=== PATIENT | female | born 1990 ===

== ENCOUNTER → 2023-01-08 09:56 | Outpatient (BNVA) | payer OTHER, SELFPAY | PROVIDERS: Visit Provider Physician Assistant ==

== ENCOUNTER 2023-01-15 10:51 | Outpatient (AMB) | payer OTHER, SELFPAY ==
--- NOTE | 2023-01-15 11:01 | A.OFFVIS_ITS ---
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 She is at the heaviest of her adult life at 217.6 lb/BMI 35.1. She notes that she has been told she has high cholesterol but also notes difficulty in seeing her PCP and is currently looking for a new primary. She also notes that she has been told to take an iron supplement due to anemia which is presumed to be related to heavy, irregular menses, but the patient has not seen a betting agency manager today. She notes a daytime sleepiness with an [place] Sleepiness Scale of 11. The patient is scheduled evaluation because of a lifelong struggle with obesity and is interested in weight loss options. Patient notes weight loss occurred as an adolescent due to braces and recently was tried on Topamax by her PCP. She is also previously tried herbal Life. She notes a family history of obesity and extended history of type 2 diabetes in both maternal and paternal grandparents. GERD 0 ESS 11 ALEC 11 QOL 85 SF-36 questionnaire is completed in reviewed She reports a past history of a tubal ligation in 2011 and a laparoscopic cholecystectomy Previous wt loss efforts: Topamax, HerbLife Wakes: 6-7am re: getting kids to school, goes back to bed until 10am; Bedtime: [id number] Brkfst: Juice or skips Lunch Chips & soda (zero corina soda) Dinner: Fast food; she doesn't cook Drinks: Juice, zero corina soda, regular soda snacks: Cheezits or chips Exercise: none ETOH/marijuana/Nicotine/drugs: none Work: unemployed [facility] Medical History Hypercholesterolemia Review of Systems Const All systems reviewed & are unremarkable except as noted in HPI and below Reports as per HPI Physical Exam Vital Signs: Last Vital Signs Temp 98.6 F 01/15/23 11:06 Pulse 86 01/15/23 11:06 BP 123/76 01/15/23 11:06 Pulse Ox 97 01/15/23 11:06 Oxygen Delivery Method Room Air 01/15/23 11:06 BMI result Body Mass Index 35.1 On exam she is anicteric and nontoxic She is in no acute respiratory distress Heart is regular, normal S1-S2 with no rubs or murmurs Lungs are clear and equal anteriorly Abdomen is obese and soft with no tenderness Assessment & Plan Assessment & Plan (1) BMI 35.0-35.9,adult: Code(s): Z68.35 - Body mass index [BMI] 35.0-35.9, adult (2) Hypercholesterolemia: Code(s): E78.00 - Pure hypercholesterolemia, unspecified (3) Daytime sleepiness: Code(s): R40.0 - Somnolence (4) Non-restorative sleep: Code(s): G47.8 - Other sleep disorders (5) Anemia: Code(s): D64.9 - Anemia, unspecified (6) Irregular menses: Code(s): N92.6 - Irregular menstruation, unspecified Plan Using a teaching dietary director, I reviewed normal anatomy and physiology and stress the importance of healthy diet and increased activity/exercise to optimize weight loss. We reviewed the options of Orbera balloon, gastric bypass and sleeve gastrectomy. I also gave her handouts regarding high lean protein/high vegetable/fiber diet. The patient noted that she is not currently cooking and would like to schedule a follow-up to review and meal plan with a goal of entering the surgical weight loss program. I have ordered a sleep study given her daytime sleepiness and ESS; I have also ordered a betting agency manager referral given the fact the patient states she was directed to find a betting agency manager. Fasting labs, Behavioral Health, dietitian referral or also ordered. Will see the patient back for 45 minute appointment in 2 weeks. She is encouraged to write down any questions regarding the handouts. She is also instructed to try some of the protein products/supplements. Orders: Orders Vitamin B12 and Folate Today E78.00 - Pure hypercholesterolemia, unspecified, G47.8 - Other sleep disorders, R40.0 - Somnolence, Z68.35 - Body mass index [BMI] 35.0-35.9, adult Comprehensive Met. Panel Today E78.00 - Pure hypercholesterolemia, unspecified, G47.8 - Other sleep disorders, R40.0 - Somnolence, Z68.35 - Body mass index [BMI] 35.0-35.9, adult C Reactive Protein Today E78.00 - Pure hypercholesterolemia, unspecified, G47.8 - Other sleep disorders, R40.0 - Somnolence, Z68.35 - Body mass index [BMI] 35.0-35.9, adult Ferritin Today E78.00 - Pure hypercholesterolemia, unspecified, G47.8 - Other sleep disorders, R40.0 - Somnolence, Z68.35 - Body mass index [BMI] 35.0-35.9, adult Hemoglobin A1c Today E78.00 - Pure hypercholesterolemia, unspecified, G47.8 - Other sleep disorders, R40.0 - Somnolence, Z68.35 - Body mass index [BMI] 35.0- 35.9, adult Insulin Today E78.00 - Pure hypercholesterolemia, unspecified, G47.8 - Other sleep disorders, R40.0 - Somnolence, Z68.35 - Body mass index [BMI] 35.0-35.9, adult IRON PROFILE Today E78.00 - Pure hypercholesterolemia, unspecified, G47.8 - Other sleep disorders, R40.0 - Somnolence, Z68.35 - Body mass index [BMI] 35.0- 35.9, adult Lipid Panel Today E78.00 - Pure hypercholesterolemia, unspecified, G47.8 - Other sleep disorders, R40.0 - Somnolence, Z68.35 - Body mass index [BMI] 35.0-35.9, adult PTHI Today E78.00 - Pure hypercholesterolemia, unspecified, G47.8 - Other sleep disorders, R40.0 - Somnolence, Z68.35 - Body mass index [BMI] 35.0-35.9, adult TSH reflex Free T4 Today E78.00 - Pure hypercholesterolemia, unspecified, G47.8 - Other sleep disorders, R40.0 - Somnolence, Z68.35 - Body mass index [BMI] 35.0-35.9, adult Vitamin A Today E78.00 - Pure hypercholesterolemia, unspecified, G47.8 - Other sleep disorders, R40.0 - Somnolence, Z68.35 - Body mass index [BMI] 35.0-35.9, adult Vitamin B1 Today E78.00 - Pure hypercholesterolemia, unspecified, G47.8 - Other sleep disorders, R40.0 - Somnolence, Z68.35 - Body mass index [BMI] 35.0-35.9, adult Vitamin D 25-OH Total Today E78.00 - Pure hypercholesterolemia, unspecified, G47.8 - Other sleep disorders, R40.0 - Somnolence, Z68.35 - Body mass index [BMI] 35.0-35.9, adult Zinc Today E78.00 - Pure hypercholesterolemia, unspecified, G47.8 - Other sleep disorders, R40.0 - Somnolence, Z68.35 - Body mass index [BMI] 35.0-35.9, adult ECG 12 lead EKG Today E78.00 - Pure hypercholesterolemia, unspecified, G47.8 - Other sleep disorders, R40.0 - Somnolence, Z68.35 - Body mass index [BMI] 35.0- 35.9, adult FL upper GI w air Today E78.00 - Pure hypercholesterolemia, unspecified, G47.8 - Other sleep disorders, R40.0 - Somnolence, Z68.35 - Body mass index [BMI] 35.0- 35.9, adult Complete Blood Count Auto Diff Today E78.00 - Pure hypercholesterolemia, unspecified, G47.8 - Other sleep disorders, R40.0 - Somnolence, Z68.35 - Body mass index [BMI] 35.0-35.9, adult RT home sleep study Today E78.00 - Pure hypercholesterolemia, unspecified, G47.8 - Other sleep disorders, R40.0 - Somnolence, Z68.35 - Body mass index [BMI] 35.0-35.9, adult H Pylori Breath Test Today E78.00 - Pure hypercholesterolemia, unspecified, G47.8 - Other sleep disorders, R40.0 - Somnolence, Z68.35 - Body mass index [BMI] 35.0-35.9, adult US abdomen comp w elastography Today E78.00 - Pure hypercholesterolemia, unspecified, G47.8 - Other sleep disorders, R40.0 - Somnolence, Z68.35 - Body mass index [BMI] 35.0-35.9, adult XR chest 2V Today E78.00 - Pure hypercholesterolemia, unspecified, G47.8 - Other sleep disorders, R40.0 - Somnolence, Z68.35 - Body mass index [BMI] 35.0-35.9, adult Referrals Behavioral Health Referral E78.00 - Pure hypercholesterolemia, unspecified, G47.8 - Other sleep disorders, R40.0 - Somnolence, Z68.35 - Body mass index [BMI] 35.0-35.9, adult Nutrition/Dietitian Referral E78.00 - Pure hypercholesterolemia, unspecified, G47.8 - Other sleep disorders, R40.0 - Somnolence, Z68.35 - Body mass index [BMI] 35.0-35.9, adult MANUFACTURING MAINTENANCE MECHANIC Referral D64.9 - Anemia, unspecified, E78.00 - Pure hypercholesterolemia, unspecified, G47.8 - Other sleep disorders, N92.6 - Irregular menstruation, unspecified, R40.0 - Somnolence, Z68.35 - Body mass index [BMI] 35.0-35.9, adult Coding Level of Care Code New Pt Level 4 (79570) Diagnoses BMI 35.0-35.9,adult Z68.35 Hypercholesterolemia E78.00 Daytime sleepiness R40.0 Non-restorative sleep G47.8 Anemia D64.9 Irregular menses N92.6
[2023-01-15 11:06] VITALS: BP 123/76; PULSE 86; TEMP 37; O2SAT 97; BMI 35.1
== END 2023-01-15 12:00 | disposition home or self-care (01) ==
PROVIDERS: Visit Provider Surgery
DX: E66.09 Other obesity due to excess calories (principal); Z68.35 Body mass index [BMI] 35.0-35.9, adult; E78.00 Pure hypercholesterolemia, unspecified; R40.0 Somnolence; G47.8 Other sleep disorders; D64.9 Anemia, unspecified; N92.6 Irregular menstruation, unspecified
CPT/HCPCS: 99204

== ENCOUNTER → 2023-01-15 10:51 | Outpatient (BNVA) | payer OTHER, SELFPAY | PROVIDERS: Visit Provider Surgery ==

== ENCOUNTER 2023-01-25 08:58 | Outpatient (REF) | payer OTHER, SELFPAY ==
--- NOTE | ~2023-01-25 | XR_ITS ---
EXAMINATION: XR CHEST CLINICAL INFORMATION: Obesity. COMPARISON: None available. TECHNIQUE: 2 views of the chest were obtained. FINDINGS: The cardiomediastinal silhouette is normal. There is no focal lung consolidation or pleural effusion. The bony structures and soft tissues are unremarkable. XR/XR chest 2V IMPRESSION: No active cardiopulmonary disease.
--- NOTE | 2023-01-25 09:09 | ECG_ITS ---
Test Reason : high bmi Blood Pressure : / mmHG Vent. Rate : 079 BPM Atrial Rate : 079 BPM P-R Int : 180 ms QRS Dur : 086 ms QT Int : 366 ms P-R-T Axes : 028 034 043 degrees QTc Int : 419 ms Normal sinus rhythm Normal ECG When compared with ECG of 11-MAY-2012 02:40, No significant change was found Referred By: Franky Vazquez Electronically Signed By:ANAYELI FERNANDES
[2023-01-25 09:21] LABS: MANUAL DIFF FLAG NO
[2023-01-25 09:49] LABS: Basophils Percent Auto 0.5 % (0-2); Eosinophils Absolute Auto 0.2 X10*3/uL (0.0-0.4); Eosinophils Percent Auto 2.6 % (0-4); Hematocrit 39.5 % (37.0-47.0); Hemoglobin 12.8 g/dl (12.0-16.0); Imm Gran Abs Auto 0.01 X10*3/uL (0.00-0.03); Imm Gran Pct Auto 0.2 % (0.0-0.4); Lymphocytes Absolute Auto 2.1 X10*3/uL (1.2-4.9); Lymphocytes Percent Auto 32.1 % (20-40); Mean Corpuscular HGB Conc 32.4 g/dl (31.0-35.0); Mean Corpuscular Hemoglobin 26.2 pg (27.0-33.0); Mean Corpuscular Volume 80.9 fL (80.0-98.0); Mean Platelet Volume 9.5 fL (9.4-12.3); Monocytes Absolute Auto 0.7 X10*3/uL (0.1-1.2); Monocytes Percent Auto 9.9 % (2-11); Neutrophils Absolute Auto 3.7 x10*3/uL (2.0-8.3); Neutrophils Percent Auto 54.7 % (45-73); Platelet Count 366 X10*3/uL (160-400); Red Blood Count 4.88 X10*6/uL (4.20-5.50); Red Cell Distribution Width 13.4 % (11.0-16.0); White Blood Count 6.7 X10*3/uL (4.8-10.8)
[2023-01-25 10:01] LABS: Estimated Average Glucose 105 mg/dL; Hemoglobin A1c % 5.3 % (<6.0)
[2023-01-25 10:37] LABS: Alanine Aminotransferase 28 U/L (0-31); Albumin Level 4.5 g/dL (3.5-5.0); Alkaline Phosphatase 79 U/L (39-117); Anion Gap 14 (12-20); Aspartate Amino Transferase 26 U/L (5-31); Bilirubin Total 0.4 mg/dL (0.0-1.0); Blood Urea Nitrogen 11 mg/dL (9-16); Calcium 9.7 mg/dL (8.4-10.2); Carbon Dioxide 25 mmol/L (22-29); Chloride 104 mmol/L (96-108); Cholesterol 159 mg/dL (<200); Estimated Glomerular Filt Rate > 60; Glucose Random 92 mg/dL (60-115); HDL Cholesterol 38 mg/dL (>40); Iron 84 mcg/dL (30-160); LDL Cholesterol Calculated 103 mg/dL (<100); Percent Iron Saturation 28 % (15-50); Sodium 139 mmol/L (135-145); Total Iron Binding Capacity 300 mcg/dL (228-428); Triglycerides 91 mg/dL (<150); Unsaturated Iron Binding 216 ug/dL
[2023-01-25 10:52] LABS: Ferritin 51 ng/mL (10-122); Insulin 15 uU/mL (2-29); TSH reflex Free T4 1.25 uIU/mL (0.32-4.0); Vitamin D 25-OH Total 17.1 ng/mL (>30)
[2023-01-25 11:01] LABS: Folate 17.4 ng/mL (> or = 4.0); Vitamin B12 784 pg/mL (200-900)
[2023-01-26 15:54] LABS: Calcium (PTHI) 9.4 mg/dL (8.6-10.2); PTHI 48 pg/mL (16-77)
[2023-01-29 09:39] LABS: Zinc 67 mcg/dL (60-130)
[2023-01-30 00:13] LABS: Vitamin B1 11 nmol/L (8-30)
[2023-01-31 16:04] LABS: Vitamin A 29 mcg/dL (38-98)
== END 2023-01-25 08:59 | disposition home or self-care (01) ==
LOC: HO.LAB 08:58
PROVIDERS: PCP Internal Medicine; Visit Provider Surgery
DX: R40.0 Somnolence (principal); E66.9 Obesity, unspecified; G47.8 Other sleep disorders; E78.00 Pure hypercholesterolemia, unspecified; Z68.35 Body mass index [BMI] 35.0-35.9, adult
CPT/HCPCS: 36415; 71046; 80053; 80061; 82306; 82607; 82728; 82746; 83036; 83525; 83540; 83970; 84425; 84443; 84590; 84630; 85025; 86140; 93005

== ENCOUNTER 2023-01-29 08:59 | Outpatient (AMB) | payer OTHER, SELFPAY ==
--- NOTE | 2023-01-29 09:11 | A.OFFVIS_ITS ---
Intake VS Expanded 01/29/23 09:19 Height 5 ft 6 in Weight 213 lb 3.2 oz BMI 34.4 BP 118/70 Blood Pressure Location Rt brachial Blood Pressure Position Sitting Pulse 80 Pulse Source Pulse Oximeter Temp 97.4 F Temperature Source Temporal Artery Scan Pulse Oximetry 98 Oxygen Delivery Method Room Air Body Fat 91.8 Body Fat Percentage 43.0 Free Fat Mass 121.4 Muscle Mass 115.4 Visceral Mass 9.0 Water Mass 87.0 BMR 1,716 Intake Visit Reasons: (OV) f/u SWL + H Pylori Stage Technician Required: No Tool And Die Technician: Tool And Die Technician offered & declined Allergies No Known Allergies Allergy (Verified 01/29/23 09:17) Medication List - Last Reconciled 01/29/23 by Franky Vazquez MD No Known Home Meds HPI HPI Comments History of Present Illness Details The patient is a 32-year-old woman who reports being overweight as a child but also notes that after having children, her weight increased even more. She is at the heaviest of her adult life at 217.6 lb/BMI 35.1. She notes that she has been told she has high cholesterol but also notes difficulty in seeing her PCP and is currently looking for a new primary. She also notes that she has been told to take an iron supplement due to anemia which is presumed to be related to heavy, irregular menses, but the patient has not seen a national flatbed truck driver today. She notes a daytime sleepiness with an [place] Sleepiness Scale of 11. She returns for a follow-up discussion regarding medical and surgical weight loss options and presents with a weight of 213.2/BMI 34.4 at today's visit. After discussion with her family and , the patient wants to proceed with a laparoscopic sleeve gastrectomy. Patient brought in a paper binder regarding changes to her diet and is currently using Equate premixed protein shakes nwith 20gm/serving. She notes a preference for pre mixed protein shakes and has started cooking using provided recipes & recommendations. Patient notes weight loss occurred as an adolescent due to braces and recently was tried on Topamax by her PCP. She is also previously tried herbal Life. She notes a family history of obesity and extended history of type 2 diabetes in both maternal and paternal grandparents. GERD 0 ESS 11 ALEC 11 QOL 85 SF-36 questionnaire is completed and reviewed Preop work-up SWL classes __ /[address] Labs Vit D low (recommended 3000 Vit D3 supplement daily) H. pylori EKG CXR NAD Abd U/S UGI She reports a past history of a tubal ligation in 2011 and a laparoscopic cholecystectomy Previous wt loss efforts: Topmichellex, HerbLife Wakes: 6-7am re: getting kids to school, goes back to bed until 10am; Bedtime: [id number] Brkfst: Juice or skips Lunch Chips & soda (zero corina soda) Dinner: Fast food; she doesn't cook Drinks: Juice, zero corina soda, regular soda snacks: Cheezits or chips Exercise: none ETOH/marijuana/Nicotine/drugs: none Work: unemployed [employer] Medical History Hypercholesterolemia Surgical History Hx of cholecystectomy Hx of tonsillectomy Social History Alcohol intake: never Patient Tobacco Use Status: Never used Tobacco Physical Exam Vital Signs: Last Vital Signs Temp 97.4 F 01/29/23 09:19 Pulse 80 01/29/23 09:19 BP 118/70 01/29/23 09:19 Pulse Ox 98 01/29/23 09:19 Oxygen Delivery Method Room Air 01/29/23 09:19 BMI result Body Mass Index 34.4 On exam she is non-toxic sclera are anicteric she's in good spirits & in no distress no respiratory difficulty is present abd is obese Results Reviewed Results Reviewed: labs 01/25/23 Hb 12.8 N/N; Plts 366K, wbc 6.7k BUN 11 Cr 0.82, lytes & LFTs wnl Vit D low, other MVI pending H pylori pending Diagnostic imaging CXR NAD UGI pending Liver elastography U/S pending Assessment & Plan Assessment & Plan (1) BMI 35.0-35.9,adult: Code(s): Z68.35 - Body mass index [BMI] 35.0-35.9, adult (2) Daytime sleepiness: Code(s): R40.0 - Somnolence (3) Non-restorative sleep: Code(s): G47.8 - Other sleep disorders (4) Hypercholesterolemia: Code(s): E78.00 - Pure hypercholesterolemia, unspecified (5) Irregular menses: Code(s): N92.6 - Irregular menstruation, unspecified (6) Anemia: Code(s): D64.9 - Anemia, unspecified Plan The patient would like to officially enter the surgical weight loss program and is interested in a laparoscopic sleeve gastrectomy. We briefly discussed the inherent risks of weight regain if maladaptive eating and sedentary behavior persist and the requirement for 10% weight loss prior to surgery. Patient is interested in a more aggressive meal plan and I will forward her 1 using Premier protein shakes per and The Right BMI eleanor. Preop Bariatric Plan 1.?? Nutritional counseling:?Be sure to careful read the number of scoops per shake if you are using powdered mix.? If you are using pre-made shakes, the flavor is chosen by you & does not matter. Start with 3 Premier Protein pre-mixed shakes ([employer], [employer], [employer]) First shake 8am-10am Second shake at 11am-1pm Dinner at 4pm (10 forks of protein and 10 forks of salad/vegetables). Meal to include lean meat (beef, fish, pork, turkey, chicken), cooked vegetables or a salad with olive oil and/or fruits (berries, pears, apples, kiwi). Avoid breads, potatoes, starches, rice, pasta, desserts. Third shake around 9pm; this can be omitted if you go to be earlier. ?2. Each shake would be drunk slowly, like coffee in a period of 2 hours. ?3. The late night shake is to avoid waking up hungry ?4. I emphasized the importance of measuring accurately the food portion and measure it carefully when serving the food on the plate ?5. The meal portions include 10 full-size forks of meat and 10 full-size forks of salad. You should always eat the meat portion but you can skip the forks of salad/vegetables and replace with a fruit if you like. The less you do it the better weight loss will be. ?6. One full-size fork is what can be scooped on the fork without falling aside and not what can be bit with the fork. Use regular forks like those you find in a typical restaurant. ?7.? Please send me weight measurements as soon as possible and then once a week. Always include your diet and exercise plan. Alternatively come weekly at the office for weight checks and send me the measurements. ?8. Exercise counseling:? Begin by watching a stretching for beginner?s video.? Start slowly and begin to stretch your muscles.? You should do this before and after each exercise session to prevent injury.? Please use the exercise equipment at your building. Start elliptical with a resistance of 2. Increase resistance by 1 every 3 min to your most comfortable resistance with a max resistance of 8.? Reduce the resistance by 1 every 3 minutes back down to 2 and repeat cycles for 300 calories. Alternatively, start treadmill with a speed of 3.0 and incline of 0, increasing incline by 1 every 3 minutes to the highest comfortable level (max 6 for now) then decrease in the same fashion.? Repeat process to a goal of 300 calories.? Goal of 2000 calories burned or more weekly.? You may also consider use of the stationary bike.? The easiest would be to choose the fat-burn or interval training program on the machine and do this until you reach the 300 calorie goal.? Alternatively, you can manually adjust the resistance in a similar fashion as mentioned above, (resistance of 2-8 with a goal speed of 12 mph).?Tracking calories is essential. 9. Alternatively, start walking outside daily, tracking calories with a goal of 300 calories per day, daily. If [id number] is needed, you can start there, but the goal is DAILY. You can download the eleanor?[employer]?which can track your time, distance and calories while walking outside.? You press start in the eleanor when you start and then stop when you are finished. ? 10.? It is important to avoid and for at least 18 months postoperatively and it has been discussed at the information session 11. Please get labs, EKG and chest X-Ray within 1 week. 12. Discussed and answered all questions regarding?obtained consent to participate in the [place] [facility]?Registry. 13. Please follow the diet plan exactly, without any change.? If you do not like something about the plan or you feel hungry, you need to communicate with me so I can help you revise the plan.? You should not change the plan yourself. 14. Goal is to lose 1.5-2.0 lbs/week 15. Goal is to lose 10% of your weight before surgery, which is about 21 lbs. Ultimate weight goal: 192 ?lbs before surgery IF YOU EXPERIENCE PAIN, SEVERE SHORTNESS OF BREATH, DIZZINESS OR LIGHTHEADEDNESS, OR SIGNIFICANT CONSTIPATION OR DIARRHEA, (DIARRRHEA CAN OCCUR FROM SOME ARTIFICIAL SWEETENERS) PLEASE NOTIFY THE OFFICE! If you have diabetes, you will need to follow your blood sugars.? Please discuss with Dr. Vazquez.? Text Dr. Vazquez at [phone] If you have hypertension/high blood pressure, you will need to monitor your blood pressure regarding adjusting medications.? Please discuss with Dr. Vazquez.? Patient is morbidly obese and is not considered stable at this time.?I spent a total of ?reviewing/updating records, examining the patient and counseling the patient on weight management as detailed above. SynthorxTube options: ?Sit to Be Fit, Daily Burn, Lisa, Walk away the pounds, The Body Project Websites: Sit and Be Fit? https://www.sitandbefit.org/ Go For Life https://xz0vwro.court.nih.gov/ The importance of exercise to increase her metabolism and facilitate weight loss was also reviewed. Her questions seemed to be satisfactorily answered and she will follow up with me in 2-3 weeks for 45 minute visit. Orders: Orders US abdomen comp w elastography Today D64.9 - Anemia, unspecified, E78.00 - Pure hypercholesterolemia, unspecified, G47.8 - Other sleep disorders, N92.6 - Irregular menstruation, unspecified, R40.0 - Somnolence, Z68.35 - Body mass index [BMI] 35.0-35.9, adult ECG 12 lead EKG Today D64.9 - Anemia, unspecified, E78.00 - Pure hypercholesterolemia, unspecified, G47.8 - Other sleep disorders, N92.6 - Irregular menstruation, unspecified, R40.0 - Somnolence, Z68.35 - Body mass index [BMI] 35.0-35.9, adult FL upper GI w air Today D64.9 - Anemia, unspecified, E78.00 - Pure hypercholesterolemia, unspecified, G47.8 - Other sleep disorders, N92.6 - Irregular menstruation, unspecified, R40.0 - Somnolence, Z68.35 - Body mass i ndex [BMI] 35.0-35.9, adult Referrals Behavioral Health Referral D64.9 - Anemia, unspecified, E78.00 - Pure hypercholesterolemia, unspecified, G47.8 - Other sleep disorders, N92.6 - Irregular menstruation, unspecified, R40.0 - Somnolence, Z68.35 - Body mass index [BMI] 35.0-35.9, adult Nutrition/Dietitian Referral D64.9 - Anemia, unspecified, E78.00 - Pure hypercholesterolemia, unspecified, G47.8 - Other sleep disorders, N92.6 - Irregular menstruation, unspecified, R40.0 - Somnolence, Z68.35 - Body mass index [BMI] 35.0-35.9, adult Coding Level of Care Code Est Pt Level 4 (85360) Diagnoses BMI 35.0-35.9,adult Z68.35 Daytime sleepiness R40.0 Non-restorative sleep G47.8 Hypercholesterolemia E78.00 Irregular menses N92.6 Anemia D64.9
[2023-01-29 09:19] VITALS: BP 118/70; PULSE 80; TEMP 36.3; O2SAT 98; BMI 34.4
== END 2023-01-29 11:15 | disposition home or self-care (01) ==
PROVIDERS: PCP Internal Medicine; Visit Provider Surgery
DX: E66.09 Other obesity due to excess calories (principal); Z68.34 Body mass index [BMI] 34.0-34.9, adult; G47.8 Other sleep disorders; E78.00 Pure hypercholesterolemia, unspecified; N92.6 Irregular menstruation, unspecified; D64.9 Anemia, unspecified
CPT/HCPCS: 99214

== ENCOUNTER → 2023-01-29 08:59 | Outpatient (BNVA) | payer OTHER, SELFPAY | PROVIDERS: PCP Internal Medicine; Visit Provider Surgery | DX: E66.3 Overweight (principal); Z68.34 Body mass index [BMI] 34.0-34.9, adult; D64.9 Anemia, unspecified; R40.0 Somnolence; G47.8 Other sleep disorders; E78.00 Pure hypercholesterolemia, unspecified; N92.6 Irregular menstruation, unspecified | CPT/HCPCS: 99211 ==

== ENCOUNTER 2023-01-29 17:02 | Outpatient (REF) | payer OTHER, SELFPAY ==
[2023-01-30 15:28] LABS: H Pylori Breath Test Negative (Negative)
== END 2023-01-29 17:03 | disposition home or self-care (01) ==
LOC: HO.LNP 17:02
PROVIDERS: Visit Provider Surgery
DX: R40.0 Somnolence (principal); G47.8 Other sleep disorders; E78.00 Pure hypercholesterolemia, unspecified; Z68.35 Body mass index [BMI] 35.0-35.9, adult
CPT/HCPCS: 83013

== ENCOUNTER 2023-02-09 08:25 | Outpatient (REF) | payer OTHER, SELFPAY ==
[2023-02-09 18:47] LABS: CT PCR NOT DETECTED (Not Detect.); NG PCR NOT DETECTED (Not Detect.)
[2023-02-11 11:20] LABS: BV Int Neg Control Negative (Negative); BV Int Pos Control Positive (Positive)
[2023-02-13 21:08] LABS: HPV mRNA E6/E7 rflx Not Detected (Not Detected)
== END 2023-02-09 08:26 | disposition home or self-care (01) ==
LOC: HO.LNP 08:25
PROVIDERS: PCP Internal Medicine; Visit Provider Advanced Practice Midwife
DX: N93.9 Abnormal uterine and vaginal bleeding, unspecified (principal); N92.6 Irregular menstruation, unspecified; Z01.419 Encounter for gynecological examination (general) (routine) without abnormal findings; Z72.89 Other problems related to lifestyle
CPT/HCPCS: 0353U; 87480; 87510; 87624; 87660; 88142

== ENCOUNTER 2023-02-09 08:25 | Outpatient (AMB) | payer OTHER, SELFPAY ==
[2023-02-09 08:28] VITALS: BP 122/76; BMI 33.9
--- NOTE | 2023-02-09 08:28 | MHC.OFFVIS ---
Intake Vital Signs 02/09/23 08:28 Height 5 ft 6 in Weight 210 lb BMI 33.9 BP 122/76 Intake Visit Reasons: annual Intake Note: c/o of late menses The patient agreed to use of a medical delivery driver during this encounter. Scribed for DELBERT [place] by Rhoda Vargas medical delivery driver, on 02/09/2023 at 8:45 am EST. Lens Hardener Required: No Information Interpreted: non-clinical & clinical Bulk Sausage Casing Tier Off: Bulk Sausage Casing Tier Off Present (Yesi Omid ROJAS) Accompanied by: Self / Same As Patient Allergies No Known Allergies Allergy (Verified 02/09/23 08:31) Is last menstrual period known: Yes Last menstrual period: 01/27/23 HPI HPI Comments History of Present Illness Details She is a premenopausal woman presenting for annual exam. She admits to eating healthy and tries to stay active with exercise. Currently sexually active. Reports slightly bleeding during intimacy with partner. H/o of tubal ligation. Reports having irregular and late menses with spotting 2 weeks prior menses. Admits pelvic cramping with menses. Regular monthly periods. Denies vaginal itching and irritation. STD screening and blood work offered; she accepts. Denies family hx of breast, colon and ovarian cancer. Last pap smear 2017. PFSH Medical History Anemia Abnormal uterine bleeding (AUB) Hypercholesterolemia Surgical History Hx of tubal ligation Hx of cholecystectomy Hx of tonsillectomy Family History Maternal Grandmother Diabetes FH: HTN (hypertension) Father Brain cancer Paternal Grandmother FH: HTN (hypertension) Social History Household Members: Spouse and Children Housing: Apartment Alcohol intake: never Patient Tobacco Use Status: Never used Tobacco Current occupational status: employed Current occupation: [employer] Sexual orientation: Straight/Heterosexual Gender identity: Female Female Reproductive History Menstrual Age of Menarche: 9 Duration of menses: 3-5 days Date of last menstrual period: 01/27/23 control method: permanent sterilization Total pregnancies: 2 Full term: 2 Number of Living Children: 2 Physical Exam Vital Signs: Last Vital Signs BP 122/76 02/09/23 08:28 BMI result Body Mass Index 33.9 Const General: cooperative, healthy appearing, no acute distress, well developed and alert Orientation/consciousness: patient oriented x3 HEENT Head: Yes normal to inspection Eyes General: appearance normal, both eyes and all related structures Neck Neck: Yes normal visual inspection Thyroid: Thyroid normal Chest Chest palpation & inspection: normal inspection of the chest Breast/axilla inspection: normal inspection of the breasts (no puckering, dimpling, peau de orange, retraction, discharge, masses) Breast/axilla palpation: normal palpation of the breasts Resp Effort & Inspection: normal respiratory effort GI Inspection: Yes normal to inspection Palpation (GI): Soft to palpation (to palpation) Rectal Exam - Female: deferred General: Yes bladder normal to inspection External Female Exam: normal external appearance and normal appearance of the urethra Speculum Exam - Vagina: normal appearance of the vagina, normal palpation and normal vaginal discharge Speculum Exam - Cervix: normal appearance of the cervix, normal palpation and Other cervical findings present (bled slightly with pap) Bimanual exam- vagina & uterus: normal palpation and normal palpation Bimanual Exam- Adnexa, other: normal adnexae and no masses Skin General skin exam: no rashes or lesions noted Neuro General: patient oriented x3 Cognition (Neuro): normal cognition Extrem General: Yes normal to inspection Psych Attitude: cooperative Thought process: Normal thought process present Results Reviewed Results Reviewed: Laboratory Tests 01/25/23 09:19 Hgb 12.8 TSH 1.25 Assessment & Plan Assessment & Plan (1) Encounter for well woman exam: Code(s): Z01.419 - Encounter for gynecological examination (general) (routine) without abnormal findings Plan: Discussed: Current recommendations for pap smears per ASCCP guidelines. Breast awareness and periodic self breast exams. Encouraged yearly mammograms. Maintaining a healthy lifestyle including a well balanced diet including Calcium and Vitamin D and routine exercise. All of her questions and concerns were addressed to the best of my ability. RTO in 1 year for AG. (2) Abnormal uterine bleeding (AUB): Code(s): N93.9 - Abnormal uterine and vaginal bleeding, unspecified Plan: BV testing and GC/CT panel done today. STD blood work ordered. Await results and treat accordingly. Us ordered. Follow up for results. (3) Irregular menses: Code(s): N92.6 - Irregular menstruation, unspecified Orders: Orders Pap Smear Today N92.6 - Irregular menstruation, unspecified, N93.9 - Abnormal uterine and vaginal bleeding, unspecified HIV Ab/Ag Today Z20.2 - Contact with and (suspected) exposure to infections with a predominantly sexual mode of transmission Syphilis Screen Today Z20.2 - Contact with and (suspected) exposure to infections with a predominantly sexual mode of transmission CT NG by PCR Today N92.6 - Irregular menstruation, unspecified, N93.9 - Abnormal uterine and vaginal bleeding, unspecified Bacterial Vaginosis Panel Today N92.6 - Irregular menstruation, unspecified, N93.9 - Abnormal uterine and vaginal bleeding, unspecified Hepatitis C Antibody Today Z20.2 - Contact with and (suspected) exposure to infections with a predominantly sexual mode of transmission Hepatitis B Core Antibody Today Z20.2 - Contact with and (suspected) exposure to infections with a predominantly sexual mode of transmission US pelvic and transvaginal Today N93.9 - Abnormal uterine and vaginal bleeding, unspecified Coding Level of Care Code New Pt Prev Care 18-39yr([id number] Diagnoses Encounter for well woman exam Z01.419 Abnormal uterine bleeding (AUB) N93.9 Irregular menses N92.6
== END 2023-02-09 09:12 | disposition home or self-care (01) ==
PROVIDERS: PCP Internal Medicine; Visit Provider Advanced Practice Midwife
DX: Z01.419 Encounter for gynecological examination (general) (routine) without abnormal findings (principal); N93.9 Abnormal uterine and vaginal bleeding, unspecified; N92.6 Irregular menstruation, unspecified
CPT/HCPCS: 99385

== ENCOUNTER 2023-02-13 09:26 | Outpatient (AMB) | payer OTHER, SELFPAY ==
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
== END 2023-02-13 10:38 | disposition home or self-care (01) ==
PROVIDERS: PCP Internal Medicine; Visit Provider Counselor Mental Health
DX: F43.20 Adjustment disorder, unspecified (principal); Z68.35 Body mass index [BMI] 35.0-35.9, adult
CPT/HCPCS: 90791

== ENCOUNTER → 2023-02-13 09:26 | Outpatient (BNVA) | payer OTHER, SELFPAY | PROVIDERS: PCP Internal Medicine; Visit Provider Counselor Mental Health ==

== ENCOUNTER → 2023-02-15 09:17 | Outpatient (BNVA) | payer OTHER, SELFPAY | PROVIDERS: PCP Internal Medicine; Visit Provider Dietitian, Registered | DX: E66.9 Obesity, unspecified (principal); Z68.33 Body mass index [BMI] 33.0-33.9, adult; Z71.3 Dietary counseling and surveillance | CPT/HCPCS: 97802 ==

== ENCOUNTER 2023-02-19 08:49 | Outpatient (AMB) | payer OTHER, SELFPAY ==
--- NOTE | 2023-02-19 08:52 | MHC.OFFVISWM ---
Intake VS Expanded 02/19/23 09:02 BP 133/81 Blood Pressure Location Rt brachial Blood Pressure Position Sitting Pulse 80 Pulse Source Pulse Oximeter Temp 97.4 F Temperature Source Tympanic Pulse Oximetry 99 Oxygen Delivery Method Room Air Height 5 ft 6 in Weight 208 lb 12.8 oz BMI 33.7 Body Fat % 42.4 Body Fat Mass 88.6 Fat Free Mass 120.2 Visceral Fat Rating 9.0 Body Water % 41.3 Body Water Mass 86.2 Muscle Mass/Score 114.0 Basal Metabolic Rate/Score 1,694 Intake Visit Reasons: (OV) f/u SWL Advertising Vice President Required: No Allergies No Known Allergies Allergy (Verified 02/19/23 08:59) HPI HPI Comments History of Present Illness Details The patient is a 32-year-old woman who reports being overweight as a child but also notes that after having children, her weight increased even more. She is at the heaviest of her adult life at 217.6 lb/BMI 35.1. She notes that she has been told she has high cholesterol but also notes difficulty in seeing her PCP and is currently looking for a new primary. She also notes that she has been told to take an iron supplement due to anemia which is presumed to be related to heavy, irregular menses, but the patient has not seen a clay burner today. She notes a daytime sleepiness with an [place] Sleepiness Scale of 11. She returns for a follow-up & wants laparoscopic sleeve gastrectomy with a weight of 208.8/BMI 33.7 at today's visit representing 9 lb weigh loss since entering the SW program. Meal plan: Premier shakes (covered by assistance, cannot afford Celebrate at this time) 3 shakes/day (90 gm protein) plus an evening meal 10 forks/10 forks, usually protein & green vegs We reviewed her The Right BMI protein goal of 90 gm protein/day Working on water intake, no SSB She purchased women's 1 a day multivitamins due to her vitamin-A and vitamin-D deficiency but notes nausea after taking it. Option of chewable Children's vitamin, 2 tablets per day was recommended. Exercise: She is currently walking for 30 minutes every other day. The importance of trending kcal expenditure was reviewed and a handout regarding various apps to determine distance and calories burned was provided. Patient notes weight loss occurred as an adolescent due to braces and recently was tried on Topamax by her PCP. She is also previously tried herbal Life. She notes a family history of obesity and extended history of type 2 diabetes in both maternal and paternal grandparents. GERD 0 ESS 11 ALEC 11 QOL 85 SF-36 questionnaire is completed and reviewed Preop work-up [facility] classes __ /[address] seen, clearance pending Labs Vit D low (recommended 3000 Vit D3 supplement daily) H. pylori pending EKG NSR, nml CXR NAD Abd U/S pending UGI pending She reports a past history of a tubal ligation in 2011 and a laparoscopic cholecystectomy Previous wt loss efforts: Topamax, HerbLife Wakes: 6-7am re: getting kids to school, goes back to bed until 10am; Bedtime: [id number] Brkfst: Juice or skips Lunch Chips & soda (zero corina soda) Dinner: Fast food; she doesn't cook Drinks: Juice, zero corina soda, regular soda snacks: Cheezits or chips Exercise: none ETOH/marijuana/Nicotine/drugs: none Work: unemployed [facility] Medical History Anemia Abnormal uterine bleeding (AUB) Hypercholesterolemia Surgical History Hx of tubal ligation Hx of cholecystectomy Hx of tonsillectomy Family History Maternal Grandmother Diabetes FH: HTN (hypertension) Father Brain cancer Paternal Grandmother FH: HTN (hypertension) Social History Household Members: Spouse and Children Housing: Apartment Alcohol intake: never Patient Tobacco Use Status: Never used Tobacco Current occupational status: employed 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 Sexual orientation: Straight/Heterosexual Gender identity: Female Female Reproductive History Menstrual Age of Menarche: 9 Review of Systems Const All systems reviewed & are unremarkable except as noted in HPI and below Reports as per HPI Physical Exam On exam she is non-toxic sclera are anicteric she's in good spirits & in no distress no respiratory difficulty is present abd is obese Results Reviewed Results Reviewed: labs 01/25/23 Hb 12.8 N/N; Plts 366K, wbc 6.7k Fe studies WNL BUN 11 Cr 0.82, lytes & LFTs wnl Vit D low, Vit A low other MVI WNL H pylori pending Lipids: Chol 159, LDL 103, HDL 38 TSH wnl LFTs WNL HbA1C 5.3% Diagnostic imaging CXR NAD UGI pending Liver elastography U/S pending Assessment & Plan Assessment & Plan (1) BMI 35.0-35.9,adult: Code(s): Z68.35 - Body mass index [BMI] 35.0-35.9, adult (2) Daytime sleepiness: Code(s): R40.0 - Somnolence (3) Non-restorative sleep: Code(s): G47.8 - Other sleep disorders (4) Hypercholesterolemia: Code(s): E78.00 - Pure hypercholesterolemia, unspecified (5) Irregular menses: Code(s): N92.6 - Irregular menstruation, unspecified (6) Anemia: Code(s): D64.9 - Anemia, unspecified Plan The patient was congratulated on her 9lb weight loss and remains interested in a laparoscopic sleeve gastrectomy. We briefly discussed the inherent risks of weight regain if maladaptive eating and sedentary behavior persist and the requirement for 10% weight loss prior to surgery which is 20 lbs & goal/target weight of 192lbs . Patient is interested in a more aggressive meal plan and I will forward her 1 using Premier protein shakes per and The Right BMI eleanor. For financial reasons, the patient will continue using Premier protein shakes. She will investigate the option of purchasing celebrate 4 in 1 around the time of surgery, but the option of using chewable children's multivitamins and continuing Premier protein was also discussed. Patient will return at the end of February and text me her weight is in the meantime. We again reviewed options including laparoscopic sleeve gastrectomy, laparoscopic gastric bypass and option of medical weight loss or 2nd opinion which was declined. We discussed the fact that surgical weight loss will fail if she returns to maladaptive eating and sedentary behavior and weight regain will occur. She seems to understand the importance of making and continuing healthy lifestyle changes at her questions seemed to be satisfactorily answered. Preop Bariatric Plan 1.?? Nutritional counseling:?Be sure to careful read the number of scoops per shake if you are using powdered mix.? If you are using pre-made shakes, the flavor is chosen by you & does not matter. Start with 3 Premier Protein pre-mixed shakes First shake 8am-10am Second shake at 11am-1pm Dinner at 4pm (10 forks of protein and 10 forks of salad/vegetables). Meal to include lean meat (beef, fish, pork, turkey, chicken), cooked vegetables or a salad with olive oil and/or fruits (berries, pears, apples, kiwi). Avoid breads, potatoes, starches, rice, pasta, desserts. Third shake around 9pm; this can be omitted if you go to be earlier. Childrens chewable MVI or will take One a Day MVI with her dinner. The importance of tracking distance and kilocalorie expenditure with her current every other day exercise program was reviewed. Handout regarding apps provided. ?2. Each shake would be drunk slowly, like coffee in a period of 2 hours. ?3. The late night shake is to avoid waking up hungry ?4. I emphasized the importance of measuring accurately the food portion and measure it carefully when serving the food on the plate ?5. The meal portions include 10 full-size forks of meat and 10 full-size forks of salad. You should always eat the meat portion but you can skip the forks of salad/vegetables and replace with a fruit if you like. The less you do it the better weight loss will be. ?6. One full-size fork is what can be scooped on the fork without falling aside and not what can be bit with the fork. Use regular forks like those you find in a typical restaurant. ?7.? Please send me weight measurements as soon as possible and then once a week. Always include your diet and exercise plan. Alternatively come weekly at the office for weight checks and send me the measurements. ?8. Exercise counseling:? Begin by watching a stretching for beginner?s video.? Start slowly and begin to stretch your muscles.? You should do this before and after each exercise session to prevent injury.? Please use the exercise equipment at your building. Start elliptical with a resistance of 2. Increase resistance by 1 every 3 min to your most comfortable resistance with a max resistance of 8.? Reduce the resistance by 1 every 3 minutes back down to 2 and repeat cycles for 300 calories. Alternatively, start treadmill with a speed of 3.0 and incline of 0, increasing incline by 1 every 3 minutes to the highest comfortable level (max 6 for now) then decrease in the same fashion.? Repeat process to a goal of 300 calories.? Goal of 2000 calories burned or more weekly.? You may also consider use of the stationary bike.? The easiest would be to choose the fat-burn or interval training program on the machine and do this until you reach the 300 calorie goal.? Alternatively, you can manually adjust the resistance in a similar fashion as mentioned above, (resistance of 2-8 with a goal speed of 12 mph).?Tracking calories is essential. 9. Alternatively, start walking outside daily, tracking calories with a goal of 300 calories per day, daily. If [id number] is needed, you can start there, but the goal is DAILY. You can download the eleanor?[employer]?which can track your time, distance and calories while walking outside.? You press start in the eleanor when you start and then stop when you are finished. ? 10.? It is important to avoid and for at least 18 months postoperatively and it has been discussed at the information session 11. Please get labs, EKG and chest X-Ray within 1 week. 12. Discussed and answered all questions regarding?obtained consent to participate in the [facility]?Registry. 13. Please follow the diet plan exactly, without any change.? If you do not like something about the plan or you feel hungry, you need to communicate with me so I can help you revise the plan.? You should not change the plan yourself. 14. Goal is to lose 1.5-2.0 lbs/week 15. Goal is to lose 10% of your weight before surgery, which is about 21 lbs. Ultimate weight goal: 192 ?lbs before surgery IF YOU EXPERIENCE PAIN, SEVERE SHORTNESS OF BREATH, DIZZINESS OR LIGHTHEADEDNESS, OR SIGNIFICANT CONSTIPATION OR DIARRHEA, (DIARRRHEA CAN OCCUR FROM SOME ARTIFICIAL SWEETENERS) PLEASE NOTIFY THE OFFICE! If you have diabetes, you will need to follow your blood sugars.? Please discuss with Dr. Vazquez.? Text Dr. Vazquez at [phone] If you have hypertension/high blood pressure, you will need to monitor your blood pressure regarding adjusting medications.? Please discuss with Dr. Vazquez.? Patient is morbidly obese and is not considered stable at this time.?I spent a total of ?reviewing/updating records, examining the patient and counseling the patient on weight management as detailed above. [employer] options: ?Sit to Be Fit, Daily Burn, Lisa, Walk away the pounds, The Body Project Websites: Sit and Be Fit? https://www.sitandbefit.org/ Go For Life https://ov4uxxs.court.nih.gov/ The importance of exercise to increase her metabolism and facilitate weight loss was also reviewed. Her questions seemed to be satisfactorily answered and she will follow up with me in 2-3 weeks for 45 minute visit. Coding Level of Care Code Est Pt Level 4 (56720) Diagnoses BMI 35.0-35.9,adult Z68.35 Daytime sleepiness R40.0 Non-restorative sleep G47.8 Hypercholesterolemia E78.00 Irregular menses N92.6 Anemia D64.9
[2023-02-19 09:02] VITALS: BP 133/81; PULSE 80; TEMP 36.3; O2SAT 99; BMI 33.7
== END 2023-02-19 09:22 | disposition home or self-care (01) ==
PROVIDERS: PCP Internal Medicine; Visit Provider Surgery
DX: E66.9 Obesity, unspecified (principal); Z68.33 Body mass index [BMI] 33.0-33.9, adult; R40.0 Somnolence; G47.8 Other sleep disorders; E78.00 Pure hypercholesterolemia, unspecified; N92.6 Irregular menstruation, unspecified; D64.9 Anemia, unspecified
CPT/HCPCS: 99214

== ENCOUNTER → 2023-02-19 08:49 | Outpatient (BNVA) | payer OTHER, SELFPAY | PROVIDERS: PCP Internal Medicine; Visit Provider Surgery ==

== ENCOUNTER → 2023-03-01 14:47 | Outpatient (REF) | payer OTHER, SELFPAY | LOC: HO.SL 14:47 | PROVIDERS: PCP Internal Medicine; Visit Provider Surgery | DX: R40.0 Somnolence (principal); G47.8 Other sleep disorders; E78.00 Pure hypercholesterolemia, unspecified; R06.83 Snoring | CPT/HCPCS: 95806 ==

== ENCOUNTER → 2023-03-01 14:59 | Outpatient (BNV) | payer OTHER, SELFPAY | PROVIDERS: PCP Internal Medicine; Visit Provider Internal Medicine | DX: R06.83 Snoring (principal); R40.0 Somnolence | CPT/HCPCS: 95806 ==

== ENCOUNTER 2023-03-13 10:43 | Outpatient (REF) | payer OTHER, SELFPAY ==
--- NOTE | ~2023-03-13 | US_ITS ---
EXAMINATION: US PELVIS CLINICAL INFORMATION: Abnormal uterine and vaginal bleeding. COMPARISON: None available. TECHNIQUE: Transabdominal and transvaginal pelvic ultrasound was performed without spectral Doppler. FINDINGS: Uterus: The uterus is anteverted and measures 8.4 x 3.6 x 4.6 cm. The double wall endometrial thickness is 5 mm. The uterus is smooth in contour and has normal myometrial echogenicity. No visible fibroid. Nabothian cysts in the cervix. Adnexa: The ovaries appear normal measuring 2.6 x 2.2 x 2.4 cm, volume 7.2 mL on the right and 3.2 x 1.6 x 2.1 cm, volume 5.6 mL on the left. No pelvic free fluid. US/US pelvic and transvaginal IMPRESSION: Normal pelvic ultrasound.
== END 2023-03-13 10:44 | disposition home or self-care (01) ==
LOC: HO.US 10:43
PROVIDERS: PCP Internal Medicine; Visit Provider Advanced Practice Midwife
DX: N93.9 Abnormal uterine and vaginal bleeding, unspecified (principal)
CPT/HCPCS: 76830; 76856

== ENCOUNTER → 2023-03-20 09:14 | Outpatient (BNVA) | payer OTHER, SELFPAY | PROVIDERS: PCP Internal Medicine; Visit Provider Dietitian, Registered | DX: E66.9 Obesity, unspecified (principal); Z68.32 Body mass index [BMI] 32.0-32.9, adult; Z71.3 Dietary counseling and surveillance | CPT/HCPCS: 97803 ==

== ENCOUNTER 2023-03-23 09:17 | Outpatient (REF) | payer OTHER, SELFPAY ==
--- NOTE | ~2023-03-23 | FL_ITS ---
EXAMINATION: XR FLUOROSCOPY UPPER GI WITH AIR CLINICAL INFORMATION: Preoperative evaluation prior to bariatric surgery COMPARISON: None TECHNIQUE: Fluoroscopic air contrast upper GI examination was performed utilizing standard techniques with thin and thick barium and effervescent granules. Numerous spot images were obtained. FINDINGS: Dual and single contrast images of the esophagus demonstrate normal caliber, contour, and mucosal pattern. No evidence of stricture, mass, or ulcerations identified. Esophageal peristalsis was normal. A small type I hiatal hernia is present. Gastroesophageal reflux is seen up to level of the thoracic inlet. Dual contrast and single contrast images of the stomach demonstrated normal contour and mucosal pattern without evidence of mass, ulceration, or other abnormality. Contrast freely passed into the gastric antrum and duodenal bulb without delay. Single and air-contrast images of the duodenal bulb demonstrate no abnormality. The duodenal sweep has a normal appearance, course, and mucosal fold appearance. The imaged proximal jejunum has a normal fold pattern and caliber. Cholecystectomy clips are noted. FLUOROSCOPY TIME: 3 minutes 8 seconds Number of Spot Images: 9 Number of cine: 9 DOSE AREA PRODUCT: 2412 uGy-m2 (microgray-meter squared) FL/FL upper GI w air IMPRESSION: 1. Small hiatal hernia, type I. 2. Significant gastroesophageal reflux. This procedure was performed by Timbo Joyner PA-C, and supervised by Dr. Allen
== END 2023-03-23 09:18 | disposition home or self-care (01) ==
LOC: HO.XRAY 09:17
PROVIDERS: Visit Provider Surgery
DX: Z01.818 Encounter for other preprocedural examination (principal); K21.9 Gastro-esophageal reflux disease without esophagitis; K46.9 Unspecified abdominal hernia without obstruction or gangrene; D64.9 Anemia, unspecified; E78.00 Pure hypercholesterolemia, unspecified; N92.6 Irregular menstruation, unspecified
CPT/HCPCS: 74246

== ENCOUNTER → 2023-03-23 09:19 | Outpatient (BNV) | payer OTHER, SELFPAY | PROVIDERS: Visit Provider Radiology Diagnostic Radiology | DX: E66.09 Other obesity due to excess calories (principal); Z01.818 Encounter for other preprocedural examination | CPT/HCPCS: 74246 ==

== ENCOUNTER 2023-03-26 08:21 | Outpatient (AMB) | payer OTHER, SELFPAY ==
--- NOTE | 2023-03-26 08:23 | A.OFFVIS_ITS ---
Intake VS Expanded 03/26/23 08:27 BP 125/58 L Blood Pressure Location Rt brachial Blood Pressure Position Sitting Pulse 72 Pulse Source Pulse Oximeter Temp 97.6 F Temperature Source Temporal Artery Scan Pulse Oximetry 99 Oxygen Delivery Method Room Air Height 5 ft 6 in Weight 202 lb 6.4 oz BMI 32.7 Body Fat % 43.0 Body Fat Mass 87.0 Fat Free Mass 115.4 Visceral Fat Rating 8.0 Body Water % 41.0 Body Water Mass 82.8 Muscle Mass/Score 109.6 Basal Metabolic Rate/Score 1,632 Intake Visit Reasons: (OV) f/u SWL Certified Nurse Midwife: Certified Nurse Midwife offered & declined Allergies No Known Allergies Allergy (Verified 03/26/23 08:25) Medication List - Last Reconciled 03/26/23 by Franky Vazquez MD, FACS, [facility] ferrous fumarate 325 mg PO DAILY multivitamin 1 tab PO DAILY HPI HPI Comments History of Present Illness Details The patient is a 32-year-old woman who reports being overweight as a child but also notes that after having children, her weight increased even more. She is at the heaviest of her adult life at 217.6 lb/BMI 35.1. She notes that she has been told she has high cholesterol but also notes difficulty in seeing her PCP and is currently looking for a new primary. She also notes that she has been told to take an iron supplement due to anemia which is presumed to be related to heavy, irregular menses, but the patient has not seen a physical science technician today. She notes a daytime sleepiness with an [place] Sleepiness Scale of 11. She returns for a follow-up & wants laparoscopic sleeve gastrectomy with a weight of 202.4/BMI 32.7 at today's visit representing 15 lb weigh loss since entering the [facility] program in 6 lb since her last visit. Meal plan: Premier shakes (covered by assistance, cannot afford Celebrate at this time) 3 shakes/day (90 gm protein) plus an evening meal 10 forks/10 forks, usually protein & green vegs We reviewed her The Right BMI protein goal of 90 gm protein/day Working on water intake, no SSB She reports some evening hunger will add 2 oz of Amharic yogurt if needed regarding snacking She purchased women's 1 a day multivitamins due to her vitamin-A and vitamin-D deficiency but notes nausea after taking it. Option of chewable Children's vitamin, 2 tablets per day was recommended. Exercise: She is currently walking for 30 minutes every other day. The importance of trending kcal expenditure was reviewed and a handout regarding various apps to determine distance and calories burned was provided. She has recently started trending her calorie expenditure and using the [employer] eleanor is burning 250-300 kcal per session which is currently 3 times a week. In the importance of increasing to 300-350 kcal with a goal of 4 sessions per week was reviewed and she will work towards the Patient notes weight loss occurred as an adolescent due to braces and recently was tried on Topamax by her PCP. She is also previously tried herbal Life. She notes a family history of obesity and extended history of type 2 diabetes in both maternal and paternal grandparents. GERD 0 ESS 11 ALEC 11 QOL 85 SF-36 questionnaire is completed and reviewed Preop work-up SWL classes BH cleared RD seen, cleared 03/20/23 Labs Vit D low (recommended 3000 Vit D3 supplement daily) H. pylori negative EKG NSR, nml CXR NAD Abd U/S pending UGI sm HH She reports a past history of a tubal ligation in 2011 and a laparoscopic cholecystectomy Previous wt loss efforts: Topamax, HerbLife Wakes: 6-7am re: getting kids to school, goes back to bed until 10am; Bedtime: [id number] Brkfst: Juice or skips Lunch Chips & soda (zero corina soda) Dinner: Fast food; she doesn't cook Drinks: Juice, zero corina soda, regular soda snacks: Cheezits or chips Exercise: none ETOH/marijuana/Nicotine/drugs: none Work: unemployed [facility] [employer] Medical History Anemia Abnormal uterine bleeding (AUB) Hypercholesterolemia Surgical History Hx of tubal ligation Hx of cholecystectomy Hx of tonsillectomy Family History Maternal Grandmother Diabetes FH: HTN (hypertension) Father Brain cancer Paternal Grandmother FH: HTN (hypertension) Social History Household Members: Spouse and Children Housing: Apartment Alcohol intake: never Patient Tobacco Use Status: Never used Tobacco Current occupational status: employed 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 Sexual orientation: Straight/Heterosexual Gender identity: Female Female Reproductive History Menstrual Age of Menarche: 9 Review of Systems Const All systems reviewed & are unremarkable except as noted in HPI and below Physical Exam Vital Signs: Last Vital Signs Temp 97.6 F 03/26/23 08:27 Pulse 72 03/26/23 08:27 BP 125/58 L 03/26/23 08:27 Pulse Ox 99 03/26/23 08:27 Oxygen Delivery Method Room Air 03/26/23 08:27 BMI result Body Mass Index 32.7 On exam she is non-toxic sclera are anicteric she's in good spirits & in no distress no respiratory difficulty is present abd is obese Results Reviewed Results Reviewed: labs 01/25/23 Hb 12.8 N/N; Plts 366K, wbc 6.7k Fe studies WNL BUN 11 Cr 0.82, lytes & LFTs wnl Vit D low, Vit A low other MVI WNL H pylori pending Lipids: Chol 159, LDL 103, HDL 38 TSH wnl LFTs WNL HbA1C 5.3% Diagnostic imaging CXR NAD UGI sm HH Liver elastography U/S pending Assessment & Plan Assessment & Plan (1) Non-restorative sleep: Code(s): G47.8 - Other sleep disorders (2) Hypercholesterolemia: Code(s): E78.00 - Pure hypercholesterolemia, unspecified (3) BMI 32.0-32.9,adult: Code(s): Z68.32 - Body mass index [BMI] 32.0-32.9, adult (4) Daytime sleepiness: Code(s): R40.0 - Somnolence (5) Irregular menses: Code(s): N92.6 - Irregular menstruation, unspecified (6) Anemia: Code(s): D64.9 - Anemia, unspecified Plan The patient was congratulated on her 9lb weight loss and remains interested in a laparoscopic sleeve gastrectomy. We briefly discussed the inherent risks of weight regain if maladaptive eating and sedentary behavior persist and the requirement for 10% weight loss prior to surgery which is 20 lbs & goal/target weight of 192lbs . Patient is interested in a more aggressive meal plan and I will forward her 1 using Premier protein shakes per and The Right BMI eleanor. For financial reasons, the patient will continue using Premier protein shakes. She will investigate the option of purchasing celebrate 4 in 1 around the time of surgery, but the option of using chewable children's multivitamins and continuing Premier protein was also discussed. Patient will return in 3 weeks and text me her weight is in the meantime. We again reviewed options including laparoscopic sleeve gastrectomy, laparoscopic gastric bypass and option of medical weight loss or 2nd opinion which was declined. We discussed the fact that surgical weight loss will fail if she returns to maladaptive eating and sedentary behavior and weight regain will occur. She seems to understand the importance of making and continuing healthy lifestyle changes at her questions seemed to be satisfactorily answered. Preop Bariatric Plan 1.?? Nutritional counseling:?Be sure to careful read the number of scoops per shake if you are using powdered mix.? If you are using pre-made shakes, the flavor is chosen by you & does not matter. Start with 3 Premier Protein pre-mixed shakes First shake 8am-10am Second shake at 11am-1pm Dinner at 4pm (10 forks of protein and 10 forks of salad/vegetables). Meal to include lean meat (beef, fish, pork, turkey, chicken), cooked vegetables or a salad with olive oil and/or fruits (berries, pears, apples, kiwi). Avoid breads, potatoes, starches, rice, pasta, desserts. Third shake around 9pm; this can be omitted if you go to be earlier. Childrens chewable MVI or will take One a Day MVI with her dinner. The importance of tracking distance and kilocalorie expenditure with her current every other day exercise program was reviewed. Handout regarding apps provided. ?2. Each shake would be drunk slowly, like coffee in a period of 2 hours. ?3. The late night shake is to avoid waking up hungry ?4. I emphasized the importance of measuring accurately the food portion and measure it carefully when serving the food on the plate ?5. The meal portions include 10 full-size forks of meat and 10 full-size forks of salad. You should always eat the meat portion but you can skip the forks of salad/vegetables and replace with a fruit if you like. The less you do it the better weight loss will be. ?6. One full-size fork is what can be scooped on the fork without falling aside and not what can be bit with the fork. Use regular forks like those you find in a typical restaurant. ?7.? Please send me weight measurements as soon as possible and then once a week. Always include your diet and exercise plan. Alternatively come weekly at the office for weight checks and send me the measurements. ?8. Exercise counseling:? Begin by watching a stretching for beginner?s video.? Start slowly and begin to stretch your muscles.? You should do this before and after each exercise session to prevent injury.? Please use the exercise equipment at your building. Start elliptical with a resistance of 2. Increase resistance by 1 every 3 min to your most comfortable resistance with a max resistance of 8.? Reduce the resistance by 1 every 3 minutes back down to 2 and repeat cycles for 300 calories. Alternatively, start treadmill with a speed of 3.0 and incline of 0, increasing incline by 1 every 3 minutes to the highest comfortable level (max 6 for now) then decrease in the same fashion.? Repeat process to a goal of 300 calories.? Goal of 2000 calories burned or more weekly.? You may also consider use of the stationary bike.? The easiest would be to choose the fat-burn or interval training program on the machine and do this until you reach the 300 calorie goal.? Alternatively, you can manually adjust the resistance in a similar fashion as mentioned above, (resistance of 2-8 with a goal speed of 12 mph).?Tracking calories is essential. 9. Alternatively, start walking outside daily, tracking calories with a goal of 300 calories per day, daily. If [id number] is needed, you can start there, but the goal is DAILY. You can download the eelanor?SunPods?which can track your time, distance and calories while walking outside.? You press start in the eleanor when you start and then stop when you are finished. ? 10.? It is important to avoid and for at least 18 months postoperatively and it has been discussed at the information session 11. Please get labs, EKG and chest X-Ray within 1 week. 12. Discussed and answered all questions regarding?obtained consent to participate in the [place] [facility]?Registry. 13. Please follow the diet plan exactly, without any change.? If you do not like something about the plan or you feel hungry, you need to communicate with me so I can help you revise the plan.? You should not change the plan yourself. 14. Goal is to lose 1.5-2.0 lbs/week 15. Goal is to lose 10% of your weight before surgery, which is about 21 lbs. Ultimate weight goal: 192 ?lbs before surgery IF YOU EXPERIENCE PAIN, SEVERE SHORTNESS OF BREATH, DIZZINESS OR LIGHTHEADEDNESS, OR SIGNIFICANT CONSTIPATION OR DIARRHEA, (DIARRRHEA CAN OCCUR FROM SOME ARTIFICIAL SWEETENERS) PLEASE NOTIFY THE OFFICE! If you have diabetes, you will need to follow your blood sugars.? Please discuss with Dr. Vazquez.? Text Dr. Vazquez at [phone] If you have hypertension/high blood pressure, you will need to monitor your blood pressure regarding adjusting medications.? Please discuss with Dr. Vazquez.? Patient is morbidly obese and is not considered stable at this time.?I spent a total of ?reviewing/updating records, examining the patient and counseling the patient on weight management as detailed above. YouTube options: ?Sit to Be Fit, Daily Burn, Lisa, Walk away the pounds, [employer] Websites: Sit and Be Fit? https://www.sitandbefit.org/ Go For Life https://sd2ratl.court.nih.gov/ The importance of exercise to increase her metabolism and facilitate weight loss was also reviewed. Her questions seemed to be satisfactorily answered and she will follow up with me in 2-3 weeks for 45 minute visit. Coding Level of Care Code Est Pt Level 4 (38579) Diagnoses Non-restorative sleep G47.8 Hypercholesterolemia E78.00 BMI 32.0-32.9,adult Z68.32 Daytime sleepiness R40.0 Irregular menses N92.6 Anemia D64.9
[2023-03-26 08:27] VITALS: BP 125/58; PULSE 72; TEMP 36.4; O2SAT 99; BMI 32.7
== END 2023-03-26 09:09 | disposition home or self-care (01) ==
PROVIDERS: PCP Internal Medicine; Visit Provider Surgery
DX: G47.8 Other sleep disorders (principal); E78.00 Pure hypercholesterolemia, unspecified; Z68.32 Body mass index [BMI] 32.0-32.9, adult; R40.0 Somnolence; N92.6 Irregular menstruation, unspecified; D64.9 Anemia, unspecified
CPT/HCPCS: 99214

== ENCOUNTER → 2023-03-26 08:21 | Outpatient (BNVA) | payer OTHER, SELFPAY | PROVIDERS: PCP Internal Medicine; Visit Provider Surgery ==

== ENCOUNTER 2023-03-27 09:05 | Outpatient (AMB) | payer OTHER, SELFPAY ==
[2023-03-27 09:06] VITALS: BP 100/64; BMI 32.6
--- NOTE | 2023-03-27 09:06 | A.OFFVIS_ITS ---
Intake Vital Signs 03/27/23 09:06 Height 5 ft 6 in Weight 202 lb BMI 32.6 BP 100/64 Intake Visit Reasons: Ultra sound follow up Intake Note: Scribed for Cherie Lee CNM by Wilton Abdullahi certified medical asst, on 03/27/23 at 9:15 AM, EST Allergies No Known Allergies Allergy (Verified 03/27/23 09:07) Is last menstrual period known: Yes Last menstrual period: 03/04/23 HPI HPI Comments History of Present Illness Details She is a premenopausal woman presenting for an US and lab review concerning AUB. H/o of tubal ligation. Reports having irregular and late menses with spotting 1-2 weeks prior menses. Admits pelvic cramping with menses. Regular monthly periods. STD screening and blood work completed on 02/09/23, normal results. She currently follows with weight management and is working on losing weight. Discussed beginning BC, she reports having mood swings with oral BC when she was 17. Not interested in beginning BC at this time. 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 Sexual orientation: Straight/Heterosexual Gender identity: Female Female Reproductive History Menstrual Age of Menarche: 9 Duration of menses: 3-5 days Date of last menstrual period: 03/04/23 control method: permanent sterilization Permanent Sterilization: BTL Review of Systems Const All systems reviewed & are unremarkable except as noted in HPI and below Reports as per HPI Eyes Reports no additional complaints ENT Reports no additional complaints Card Reports no additional complaints Resp Reports no additional complaints GI Reports as per HPI and Reports no additional complaints Reports as per HPI Musc Reports no additional complaints Skin/Breast Reports as per HPI Neuro Reports no additional complaints Psych Reports no additional complaints Endo Reports no additional complaints Walter/Lymph Reports no additional complaints Aller/Immun Reports no additional complaints Physical Exam Vital Signs: Last Vital Signs BP 100/64 03/27/23 09:06 BMI result Body Mass Index 32.6 Const General: cooperative, healthy appearing, no acute distress, well developed and alert Orientation/consciousness: patient oriented x3 Neuro General: patient oriented x3 Results Reviewed Results Reviewed: FINDINGS: Uterus: The uterus is anteverted and measures 8.4 x 3.6 x 4.6 cm. The double wall endometrial thickness is 5 mm. The uterus is smooth in contour and has normal myometrial echogenicity. No visible fibroid. Nabothian cysts in the cervix. Adnexa: The ovaries appear normal measuring 2.6 x 2.2 x 2.4 cm, volume 7.2 mL on the right and 3.2 x 1.6 x 2.1 cm, volume 5.6 mL on the left. No pelvic free fluid. US/US pelvic and transvaginal IMPRESSION: Normal pelvic ultrasound. Bloodwork: CBC, TSH, cervicla cultures and PAP smear all reviewed today, and normal Assessment & Plan Assessment & Plan (1) Abnormal uterine bleeding (AUB): Code(s): N93.9 - Abnormal uterine and vaginal bleeding, unspecified Plan: BV testing, GC/CT panel, & STD bloodwork all normal. US normal PAP smear normal Discussed BC use and side effects. Not interested in beginning BC at this time. Discussed proper Vitamin D in her diet Expectant management, if her menses become heavier or more prolonged she should follow up to discuss Otherwise, she will follow up in 3 months to see how she is doing in regards to weight loss and AUB. (2) Irregular menses: Code(s): N92.6 - Irregular menstruation, unspecified (3) Encounter to discuss test results: Code(s): Z71.2 - Person consulting for explanation of examination or test findings Coding Level of Care Code Est Pt Level 3 (57770) Diagnoses Abnormal uterine bleeding (AUB) N93.9 Irregular menses N92.6 Encounter to discuss test results Z71.2
== END 2023-03-27 09:32 | disposition home or self-care (01) ==
LOC: HO.HWS 09:05
PROVIDERS: PCP Internal Medicine; Visit Provider Advanced Practice Midwife
DX: N93.9 Abnormal uterine and vaginal bleeding, unspecified (principal); N92.6 Irregular menstruation, unspecified; Z71.2 Person consulting for explanation of examination or test findings
CPT/HCPCS: 99213

== ENCOUNTER → 2023-03-27 09:05 | Outpatient (BNVA) | payer OTHER, SELFPAY | PROVIDERS: PCP Internal Medicine; Visit Provider Advanced Practice Midwife ==

== ENCOUNTER 2023-08-06 09:55 | Outpatient (AMB) | payer OTHER, SELFPAY ==
--- NOTE | 2023-08-06 10:03 | MHC.PC.OV ---
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 Intake Note: Pt is here today as a New Patient to est care/ PE Last papsmear 02/12/23 Is last menstrual period known: Yes Last menstrual period: 07/14/23 Allergies No Known Allergies Allergy (Verified 08/07/23 00:47) Medication List - Last Reconciled 08/07/23 by Lashanda Fuentes MD docusate sodium 100 mg PO DAILY ferrous fumarate 325 mg PO DAILY multivitamin 1 tab PO DAILY omeprazole 40 mg PO DAILY Tobacco use date assessed: 08/06/23 Dental Screening Dental Screen Date: 08/06/23 Did you have a dental visit in the last 12 months?: Yes Did you have a dental problem in the last 6 months where you did not have access to dental care?: Yes Was dental information given to patient?: Patient has dentist 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 She had an upper GI series done last year which showed a small hiatal hernia and severe GERD. Was not placed on any PPI eyes, has just been taking TUMS otc as needed for heartburn symptoms, which usually occurs at night. She has history of iron deficiency anemia currently on iron supplements, has been feeling well, with no episodes of chest pain, palpitation, shortness of breath or lightheadedness. Shecurrently sees Dr. Swanson for her routine Pap and pelvic examand irregular menses , up-to-date with cervical cancer screening done a year ago. She was found to have vitamin-A and vitamin vitamin-D deficiency on previous labs, currently not taking any supplements. [facility] Medical History (Updated 08/06/23 @ 10:41 by Lashanda Fuentes MD) GERD (gastroesophageal reflux disease) History of cholelithiasis Obesity (BMI 30.0-34.9) History of anemia Vitamin A deficiency Vitamin D deficiency Anemia Abnormal uterine bleeding (AUB) Hypercholesterolemia Surgical History Hx of tubal ligation Hx of cholecystectomy Hx of tonsillectomy Family History Maternal Grandmother Diabetes FH: HTN (hypertension) Father Brain cancer Paternal Grandmother FH: HTN (hypertension) Diabetes Maternal Grandfather Substance use disorder Alcoholism Mother Substance use disorder Alcoholism Mixed anxiety and depressive disorder Social History Household Members: Spouse and Children Housing: Apartment Alcohol intake: never Patient Tobacco Use Status: Never used Tobacco e-Cigarette/Vaping Use: Never Used Current occupational status: employed Current occupation: [employer] Sexual orientation: Straight/Heterosexual Gender identity: Female Cognitive needs: No Hearing needs: No Vision needs: No Female Reproductive History Menstrual Age of Menarche: 9 Date of last menstrual period: 07/14/23 control method: permanent sterilization Questionnaire PHQ-9 Over the last 2 weeks, how often have you been bothered by any of the following problems? 1. Little interest or pleasure in doing things: not at all 2. Feeling down, depressed, or hopeless: not at all 3. Trouble falling or staying asleep, or sleeping too much: nearly every day (She states that she has not already a sleep study with no obstructive sleep apnea or restless leg syndrome seen) 4. Feeling tired or having little energy: several days 5. Poor appetite or overeating: not at all 6. Feeling bad about yourself - or that you are a failure or have let yourself or your family down: not at all 7. Trouble concentrating on things, such as reading the newspaper or watching television: several days 8. Moving or speaking so slowly that other people could have noticed. Or the opposite - being so fidgety or restless that you have been moving around a lot more than usual: not at all 9. Thoughts that you would be better off or of hurting yourself in some way: not at all Total score: 5 Depression Screening Interpretation: Negative Depression Screening Done: Yes 34921 - PHQ-9 Billing: Yes Source: Developed by Drs. Rony Finley, Lima Ramachandran, Mandeep Jaeger and colleagues, with an educational elsa from [employer]. Thrive Questionnaire Date Thrive assessed: 08/06/23 I am a: Patient What is your living situation today?: I have a steady place to live Within the past 12 months, did the food you bought not last and you didn't have the money to get more?: Sometimes True Within the past 12 months, did you worry whether your food would run out before you got money to buy more?: Sometimes True Do you have trouble paying for medicines?: No Do you have trouble getting transportation to medical appointments?: No Do you have trouble paying your heating and electricity bill?: No Do you have trouble taking care of your child, family member or friend?: No Do you have trouble with day-to-day activities such as bathing, preparing meals, shopping, managing finances, etc.?: No Are you currently unemployed and looking for a job?: No Are you interested in more education?: No Please select the resources that you would like help with: None THRIVE Score: 2 AUDIT C Alcohol Use Questionnaire (AUDIT-C) 1. How often do you have a drink containing alcohol?: Never 3. How often do you have six or more drinks on one occasion?: Never Total Score: 0 NATHALIE-7 AMB Questionnaire NATHALIE-7 Date NATHALIE - 7 assessed: 08/06/23 Feeling nervous, anxious, or on edge: 1 = Several days Not being able to stop or control worryin = Several days Worrying too much about different things: 1 = Several days Trouble relaxin = Not at all Being so restless that it is hard to sit still: 0 = Not at all Becoming easily annoyed or irritable: 0 = Not at all Feeling afraid as if something awful might happen: 0 = Not at all Total NATHALIE-7 score (0-4 normal; 5-9 mild; 10-14 moderate; 15-21 severe): 3 Source: Developed by Drs. Rony Finley, Lima Ramachandran, Mandeep Jaeger and colleagues, with an educational elsa from [employer]. NATHALIE-7 Assessment Billing NATHALIE-7 Assessment Tool: NATHALIE-7 Assessment 94807 Review of Systems Const Reports as per HPI Eyes Reports blurry vision ENT Reports no additional complaints Card Denies chest pain, Denies rapid heart rate, Denies irregular heart rhythm, Denies lightheadedness and Denies dyspnea Resp Denies cough and Denies dyspnea GI Reports as per HPI, Denies melena, Denies hematochezia and Denies nausea Reports no additional complaints and Reports as per HPI Musc Reports no additional complaints Skin/Breast Denies breast pain and Denies rash Neuro Reports no additional complaints Psych Reports no additional complaints Endo Reports no additional complaints Walter/Lymph Reports no additional complaints Aller/Immun Reports no additional complaints Physical exam (Primary Care) Vital Signs: Last Vital Signs Pulse 71 08/06/23 10:05 BP 106/64 08/06/23 10:05 Pulse Ox 99 08/06/23 10:05 Oxygen Delivery Method Room Air 08/06/23 10:05 BMI result Body Mass Index 31.5 BMI Assessment/Plan discussion: High BMI High, discussed plan: lifestyle, weight reduction, dietary and physical activity Tobacco/Smoking Status: Tobacco use Status Tobacco use date assessed 08/06/23 08/06/23 10:07 Patient Tobacco Use Status Never used Tobacco 08/06/23 10:07 e-Cigarette/Vaping Use Never Used 08/06/23 10:07 PHQ-9: PHQ-9 Score PHQ-9: Total score 9 08/06/23 10:41 Depression Screening Interpretation: Negative Thrive Assessment: Date of Thrive Assessment Date Thrive assessed 08/06/23 08/06/23 10:07 Const General: no acute distress and alert Nutritional Appearance: obese Orientation/consciousness: patient oriented x3 HENMT Head: Yes normocephalic and Yes atraumatic Ears: external ears normal, TM's normal bilaterally and EAC's normal General nose exam: Normal external nose present and No nasal discharge present Face and sinus: Yes face symmetric Mouth: Normal oral and palatal mucosa present, oropharynx normal and moist mucous membranes Eyes General: appearance normal, both eyes and all related structures Eyelids: Yes eyelids normal Conjunctivae: conjunctivae normal Sclerae: sclerae normal Pupils: Equal, round and reactive pupils present EOM: EOMs intact bilaterally Neck Neck: Yes full ROM, Yes no lymphadenopathy and Yes supple Thyroid: Thyroid normal Chest Chest palpation & inspection: normal inspection of the chest Breast/axilla inspection: normal inspection of the breasts Breast/axilla palpation: normal palpation of the breasts Resp Effort & Inspection: normal respiratory effort and able to speak in complete sentences Auscultation: clear to auscultation bilaterally Cardio Rate: regular rate Rhythm: regular rhythm Heart sounds: S1 normal heart sound present and S2 normal heart sound present GI Palpation (GI): Soft to palpation, nontender, no guarding and no masses Auscultation: normal bowel sounds General: Yes no CVA tenderness and Yes deferred (sees Dr Swanson ) Back/Spine/Pelvis Back: no CVA tenderness and No back tenderness Skin General skin exam: no rashes or lesions noted Neuro General: patient oriented x3, gait normal, moves all extremities, Normal light touch and pain sensation, no focal motor deficits and CN's II-XI intact bilaterally Cranial nerves: Yes Equal, round and reactive pupils present Cognition (Neuro): normal cognition Gait exam (Neuro): Normal gait present Motor exam (neuro): 5/5 motor strength present throughout Extrem General: Yes normal to inspection, Yes full ROM, Yes no joint enlargement, Yes no pedal edema and Yes normal gait Psych Appearance: grossly normal and well kempt Mental Status: mental status grossly normal Speech and movement: Normal speech and movement present Affect: normal affect Attitude: cooperative Thought process: Normal thought process present Thought content: Normal thought content present Assessment and Plan Assessment & Plan (1) Vitamin A deficiency: Code(s): E50.9 - Vitamin A deficiency, unspecified Plan: Will check vitamin A level (2) GERD (gastroesophageal reflux disease): Code(s): K21.9 - Gastro-esophageal reflux disease without esophagitis Qualifiers: Esophagitis presence: esophagitis presence not specified Qualified Code(s): K21.9 - Gastro-esophageal reflux disease without esophagitis Plan: Started on omeprazole 40 mg per capsule to take once a day at least an hour before supper for 2 months, avoidance of triggers for heartburn such as anything tomato based foods, acidic foods, fried foods especially at night (3) Vitamin D deficiency: Code(s): E55.9 - Vitamin D deficiency, unspecified Plan: Ordered vitamin-D level (4) Annual visit for general adult medical examination with abnormal findings: Code(s): Z00.01 - Encounter for general adult medical examination with abnormal findings Plan: Will check appropriate labs. Recommended dental visit every 6 months and regular eye exams, at least every 2 years. Take adequate calcium in diet and vitamin-D 3 at 2000 IU per cap once a day, in addition to weight-bearing exercises to help maintain good muscle tone and weight control. Instructed to do self-breast exam, and recommended to get yearly mammogram, starting at age 40. Up-to-date with her Tdap, does not want to get further COVID vaccination or flu vaccine. (5) History of anemia: Code(s): Z86.2 - Personal history of diseases of the blood and blood-forming organs and certain disorders involving the immune mechanism Plan: Repeat CBC ordered (6) Obesity (BMI 30.0-34.9): Code(s): E66.9 - Obesity, unspecified Plan: Discussed need to increase activity and wt reduction. Recommended focusing on improving your health instead of dieting. : Eat Mediterranean diet, limit foods high in fat, sugar, and calories, eat slowly, pay attention to portion sizes, plan your meals ahead of time, start regular physical activity 150 minutes of moderate intensity exercise or 90 minutes/week of vigorous exercise Orders: Orders Vitamin D 25-OH Total 08/06/23 E50.9 - Vitamin A deficiency, unspecified, E55.9 - Vitamin D deficiency, unspecified, Z00.01 - Encounter for general adult medical examination with abnormal findings Vitamin A 08/06/23 E50.9 - Vitamin A deficiency, unspecified, E55.9 - Vitamin D deficiency, unspecified, Z00.01 - Encounter for general adult medical examination with abnormal findings IRON PROFILE 08/06/23 E66.9 - Obesity, unspecified, Z86.2 - Personal history of diseases of the blood and blood-forming organs and certain disorders involving the immune mechanism Basic Metabolic Panel Fasting 08/06/23 E50.9 - Vitamin A deficiency, unspecified, E55.9 - Vitamin D deficiency, unspecified, Z00.01 - Encounter for general adult medical examination with abnormal findings Lipid Panel 08/06/23 E50.9 - Vitamin A deficiency, unspecified, E55.9 - Vitamin D deficiency, unspecified, Z00.01 - Encounter for general adult medical examination with abnormal findings Complete Blood Count Auto Diff 08/06/23 E66.9 - Obesity, unspecified, Z86.2 - Personal history of diseases of the blood and blood-forming organs and certain disorders involving the immune mechanism Medications: New omeprazole 40 mg PO DAILY 30 caps 4RF K21.9 - Gastro-esophageal reflux disease without esophagitis docusate sodium 100 mg PO DAILY 30 tabs 4RF Coding Level of Care Code New Pt Prev Care 18-39yr(10870 Diagnoses Vitamin A deficiency E50.9 Gastroesophageal reflux disease, unspecified whether esophagitis present K21.9 Esophagitis presence: esophagitis presence not specified Vitamin D deficiency E55.9 Annual visit for general adult medical examination with abnormal findings Z00.01 History of anemia Z86.2 Obesity (BMI 30.0-34.9) E66.9 Additional Codes NATHALIE-7 Assessment Billing - NATHALIE-7 Assessment Tool: NATHALIE-7 Assessment [id number] ([id number])
[2023-08-06 10:05] VITALS: BP 106/64; PULSE 71; O2SAT 99; BMI 31.5
== END 2023-08-06 10:48 | disposition home or self-care (01) ==
PROVIDERS: PCP Internal Medicine; Visit Provider Internal Medicine
DX: Z00.01 Encounter for general adult medical examination with abnormal findings (principal); E50.9 Vitamin A deficiency, unspecified; E66.9 Obesity, unspecified; Z68.31 Body mass index [BMI] 31.0-31.9, adult; K21.9 Gastro-esophageal reflux disease without esophagitis; E55.9 Vitamin D deficiency, unspecified; Z86.2 Personal history of diseases of the blood and blood-forming organs and certain disorders involving the immune mechanism
CPT/HCPCS: 99203; 99385

== ENCOUNTER 2023-08-06 10:50 | Outpatient (REF) | payer OTHER, SELFPAY ==
[2023-08-06 13:12] LABS: MANUAL DIFF FLAG NO
[2023-08-06 13:42] LABS: Basophils Percent Auto 0.5 % (0-2); Eosinophils Absolute Auto 0.1 X10*3/uL (0.0-0.4); Eosinophils Percent Auto 1.8 % (0-4); Hematocrit 39.8 % (37.0-47.0); Hemoglobin 12.8 g/dl (12.0-16.0); Imm Gran Abs Auto 0.02 X10*3/uL (0.00-0.03); Imm Gran Pct Auto 0.3 % (0.0-0.4); Lymphocytes Absolute Auto 2.2 X10*3/uL (1.2-4.9); Lymphocytes Percent Auto 37.4 % (20-40); Mean Corpuscular HGB Conc 32.2 g/dl (31.0-35.0); Mean Corpuscular Hemoglobin 25.9 pg (27.0-33.0); Mean Corpuscular Volume 80.6 fL (80.0-98.0); Mean Platelet Volume 9.7 fL (9.4-12.3); Monocytes Absolute Auto 0.6 X10*3/uL (0.1-1.2); Monocytes Percent Auto 10.7 % (2-11); Neutrophils Absolute Auto 2.9 x10*3/uL (2.0-8.3); Neutrophils Percent Auto 49.3 % (45-73); Platelet Count 348 X10*3/uL (160-400); Red Blood Count 4.94 X10*6/uL (4.20-5.50); Red Cell Distribution Width 13.4 % (11.0-16.0)
[2023-08-06 14:17] LABS: Anion Gap 14 (12-20); Blood Urea Nitrogen 10 mg/dL (9-16); Calcium 9.1 mg/dL (8.4-10.2); Carbon Dioxide 23 mmol/L (22-29); Chloride 104 mmol/L (96-108); Cholesterol 170 mg/dL (<200); Estimated Glomerular Filt Rate > 60; Glucose Fasting 87 mg/dL (60-99); HDL Cholesterol 49 mg/dL (>40); Iron 98 mcg/dL (30-160); LDL Cholesterol Calculated 108 mg/dL (<100); Percent Iron Saturation 34 % (15-50); Sodium 137 mmol/L (135-145); Total Iron Binding Capacity 288 mcg/dL (228-428); Triglycerides 69 mg/dL (<150); Unsaturated Iron Binding 190 ug/dL
[2023-08-06 14:22] LABS: Vitamin D 25-OH Total 26.7 ng/mL (>30)
[2023-08-10 06:39] LABS: Vitamin A 36 mcg/dL (38-98)
== END 2023-08-06 10:51 | disposition home or self-care (01) ==
LOC: HO.HMGCLDS 10:50
PROVIDERS: PCP Internal Medicine; Visit Provider Internal Medicine
DX: Z00.01 Encounter for general adult medical examination with abnormal findings (principal); E55.9 Vitamin D deficiency, unspecified; E50.9 Vitamin A deficiency, unspecified; E66.9 Obesity, unspecified; Z86.2 Personal history of diseases of the blood and blood-forming organs and certain disorders involving the immune mechanism
CPT/HCPCS: 36415; 80048; 80061; 82306; 83540; 84590; 85025

== ENCOUNTER 2024-02-04 10:50 | Outpatient (AMB) | payer OTHER, SELFPAY ==
--- NOTE | 2024-02-04 11:19 | A.OFFPC_ITS ---
Vital Signs 02/04/24 11:24 Height 5 ft 6 in Weight 200 lb BMI 32.3 BP 104/78 Blood Pressure Location Rt brachial Position Sitting Pulse 85 Pulse Source Pulse Oximeter Pulse Oximetry (%) 95 Oxygen Delivery Method Room Air Intake Visit Reasons: 6mo. f/u Intake Note: Pt is here today for her 6mo. f/u and c/o rash left side of neck Allergies No Known Allergies Allergy (Verified 02/04/24 11:44) Medication List - Last Reconciled 02/04/24 by Lashanda Fuentes MD No Known Home Meds Tobacco use date assessed: 02/04/24 Dental Screening Dental Screen Date: 02/04/24 Did you have a dental visit in the last 12 months?: Yes Did you have a dental problem in the last 6 months where you did not have access to dental care?: No Was dental information given to patient?: Patient has dentist HPI 6mo. f/u HPI Details 33-year-old lady with history of heartbu rn, anemia, vitamin-D deficiency, here today for follow-up. Last labs done 07/2023 showed normal hemoglobin hematocrit . She states that heartburn symptoms have resolved and does not take any medications for it. She however is complaining of a hyperpigmented rash on the left side of her neck, which has been present now for the last several weeks. Denies any history of travel, no pets at home, no mucus medic sore detergents used. No itching reported. [facility] Medical History (Updated 02/04/24 @ 11:52 by Lashanda Fuentes MD) Hyperpigmented skin lesion GERD (gastroesophageal reflux disease) History of cholelithiasis Obesity (BMI 30.0-34.9) History of anemia Vitamin A deficiency Vitamin D deficiency Anemia Abnormal uterine bleeding (AUB) Hypercholesterolemia Surgical History Hx of tubal ligation Hx of cholecystectomy Hx of tonsillectomy Family History Maternal Grandmother Diabetes FH: HTN (hypertension) Father Brain cancer Paternal Grandmother FH: HTN (hypertension) Diabetes Maternal Grandfather Substance use disorder Alcoholism Mother Substance use disorder Alcoholism Mixed anxiety and depressive disorder Social History Household Members: Spouse and Children Housing: Apartment Alcohol intake: never Patient Tobacco Use Status: Never used Tobacco e-Cigarette/Vaping Use: Never Used Current occupational status: employed Current occupation: [employer] Sexual orientation: Straight/Heterosexual Gender identity: Female Cognitive needs: No Hearing needs: No Vision needs: No Female Reproductive History Menstrual Age of Menarche: 9 Questionnaire Thrive Questionnaire Date Thrive assessed: 08/06/23 I am a: Patient What is your living situation today?: I have a steady place to live Within the past 12 months, did the food you bought not last and you didn't have the money to get more?: Sometimes True Within the past 12 months, did you worry whether your food would run out before you got money to buy more?: Sometimes True Do you have trouble paying for medicines?: I choose not to answer this question Do you have trouble getting transportation to medical appointments?: No Do you have trouble paying your heating and electricity bill?: No Do you have trouble taking care of your child, family member or friend?: No Do you have trouble with day-to-day activities such as bathing, preparing meals, shopping, managing finances, etc.?: No Are you interested in more education?: No Please select the resources that you would like help with: None Currently or been in a relationship where the following occur: No concerns reported THRIVE Score: 2 AUDIT C Alcohol Use Questionnaire (AUDIT-C) 1. How often do you have a drink containing alcohol?: Never Total Score: 0 NATHALIE-7 AMB Questionnaire NATHALIE-7 Date NATHALIE - 7 assessed: 08/06/23 Feeling nervous, anxious, or on edge: 0 = Not at all Not being able to stop or control worryin = Not at all Worrying too much about different things: 0 = Not at all Trouble relaxin = Not at all Being so restless that it is hard to sit still: 0 = Not at all Becoming easily annoyed or irritable: 0 = Not at all Feeling afraid as if something awful might happen: 0 = Not at all Total NATHALIE-7 score (0-4 normal; 5-9 mild; 10-14 moderate; 15-21 severe): 0 Source: Developed by Delfin Bairdet B.W. Duarte, Mandeep Jaeger and colleagues, with an educational elsa from [employer]. Review of Systems Const Reports as per HPI ENT Reports no additional complaints Card Denies chest pain, Denies rapid heart rate, Denies irregular heart rhythm, Denies lightheadedness and Denies dyspnea Resp Denies cough and Denies dyspnea GI Reports as per HPI, Denies melena, Denies hematochezia and Denies nausea Reports no additional complaints and Reports as per HPI Musc Reports no additional complaints Skin/Breast Reports as per HPI Neuro Reports no additional complaints Psych Reports no additional complaints Endo Reports no additional complaints Walter/Lymph Reports no additional complaints Aller/Immun Reports no additional complaints Physical exam (Primary Care) Vital Signs: Last Vital Signs Pulse 85 02/04/24 11:24 BP 104/78 02/04/24 11:24 Pulse Ox 95 02/04/24 11:24 Oxygen Delivery Method Room Air 02/04/24 11:24 BMI result Body Mass Index 32.3 Tobacco/Smoking Status: Tobacco use Status Tobacco use date assessed 02/04/24 02/04/24 11:21 Patient Tobacco Use Status Never used Tobacco 02/04/24 11:21 e-Cigarette/Vaping Use Never Used 02/04/24 11:21 Thrive Assessment: Date of Thrive Assessment Date Thrive assessed 08/06/23 02/04/24 11:21 Currently or been in a relationship where the following occur: No concerns reported Const General: no acute distress and alert Orientation/consciousness: patient oriented x3 HENMT Head: Yes normocephalic Ears: external ears normal General nose exam: Normal external nose present Face and sinus: Yes face symmetric Mouth: oropharynx normal and moist mucous membranes Eyes General: appearance normal, both eyes and all related structures Eyelids: Yes eyelids normal Conjunctivae: conjunctivae normal Sclerae: sclerae normal Pupils: Equal, round and reactive pupils present EOM: EOMs intact bilaterally Neck Neck: Yes full ROM, Yes no lymphadenopathy and Yes supple Thyroid: Thyroid normal Resp Effort & Inspection: normal respiratory effort and able to speak in complete sentences Auscultation: clear to auscultation bilaterally Cardio Rate: regular rate Rhythm: regular rhythm Heart sounds: S1 normal heart sound present and S2 normal heart sound present GI Palpation (GI): Soft to palpation, nontender, no guarding and no masses Auscultation: normal bowel sounds Skin Other: Hyperpigmented macular rash on left side of neck Neuro General: patient oriented x3, gait normal, moves all extremities, Normal light touch and pain sensation, no focal motor deficits and CN's II-XI intact bilaterally Cranial nerves: Yes Equal, round and reactive pupils present Cognition (Neuro): normal cognition Gait exam (Neuro): Normal gait present Motor exam (neuro): 5/5 motor strength present throughout Extrem General: Yes normal to inspection, Yes full ROM, Yes no joint enlargement, Yes no pedal edema and Yes normal gait Results Reviewed Results Reviewed: Laboratory Tests 08/06/23 10:57 WBC 6.0 Hgb 12.8 Hct 39.8 Plt Count 348 merly: BlakeChanel Age/Sex: 33/F : 1990 Unit#: [id number] Attend Dr: Lashanda Fuentes MD Re08/06/23 Status: DEP REF Location: [facility] Disch: SPEC : [id number] BRIANA: 08/06/23-1056 STATUS: COMP REQ : [id number] RECD: 08/06/23-[address]: Lashanda Fuentes MD COMP: 08/06/23-1421 ENTERED: 08/06/23-[address]: ORDERED: Met Prof Fast, IRON PROF, Lipid Panel, Vitamin D 25-OH Test Result Flag Reference Sodium 137 135-145 mmol/L Potassium 4.0 3.3-5.1 mmol/L CL 104 96-108 mmol/L CO2 23 22-29 mmol/L Gap 14 12-20 BUN 10 9-16 mg/dL Creat 0.83 0.5-1.4 mg/dL EGFR > 60 NOTE: For -[place] individuals, multiply the result by 1.210. Chronic Kidney Disease: Estimated GFR < 60 mL/min/1.73m2 Severe Kidney Disease: Estimated GFR < 15 mL/min/1.73m2 FBS 87 60-99 mg/dL CA 9.1 # 8.4-10.2 mg/dL Iron 98 30-160 mcg/dL TIBC 288 228-428 mcg/dL Saturation 34 15-50 % UIBC 190 ug/dL Triglyceride 69 <150 mg/dL Desirable Triglyceride: less than 150 mg/dL Borderline High Triglyceride 150-199 mg/dL High Triglyceride: 200-499 mg/dL Very High Triglyceride: greater than or equal to 5OO mg/dL Cholesterol 170 <200 mg/dL Desirable Cholesterol: less than 200 mg/dL Borderline High Cholesterol: 200-239 mg/dL High Cholesterol: greater than 239 mg/dL LDL Calculated 108 H <100 mg/dL Desirable LDL: less than 100 mg/dL Near Optimal/Above Optimal LDL: 110-129 mg/dL Borderline High LDL: 130-159 mg/dL High LDL: 160-189 mg/dL Very High LDL: greater than or equal to 190 mg/dL HDL 49 >40 mg/dL Desirable HDL: greater than 40 mg/dL Note: This HDL assay may give artificially low results in patients with liver disease. Vit D 25-OH Tot 26.7 L >30 ng/mL Health Based Reference Values* < 20 ng/mL Deficient 20-30 ng/mL Insufficient > 30 ng/mL Sufficient Assessment and Plan Assessment & Plan (1) Hyperpigmented skin lesion: Code(s): L81.9 - Disorder of pigmentation, unspecified Plan: Nonpruritic, no exposure to any new cosmetics, soaps perfumes, will refer to [facility] for further evaluation (2) Vitamin D deficiency: Code(s): E55.9 - Vitamin D deficiency, unspecified Plan: Advised to start taking [id number] vitamin-D 3 at least 2000 units daily. Will check levels again on next physical in 07/2024 Orders: Referrals Dermatology Referral L81.9 - Disorder of pigmentation, unspecified Coding Level of Care Code Est Pt Level 3 (51856) Diagnoses Hyperpigmented skin lesion L81.9 Vitamin D deficiency E55.9
[2024-02-04 11:24] VITALS: BP 104/78; PULSE 85; O2SAT 95; BMI 32.3
== END 2024-02-04 11:56 | disposition home or self-care (01) ==
PROVIDERS: PCP Internal Medicine; Visit Provider Internal Medicine
DX: L81.9 Disorder of pigmentation, unspecified (principal); E55.9 Vitamin D deficiency, unspecified

== ENCOUNTER → 2024-02-04 10:50 | Outpatient (BNVA) | payer OTHER, SELFPAY | PROVIDERS: PCP Internal Medicine; Visit Provider Internal Medicine | DX: L81.9 Disorder of pigmentation, unspecified (principal); E55.9 Vitamin D deficiency, unspecified ==

== ENCOUNTER 2024-02-08 13:32 | Outpatient (REF) | payer OTHER, SELFPAY ==
[2024-02-08 17:02] LABS: Vitamin D 25-OH Total 24.7 ng/mL (>30)
[2024-02-13 19:03] LABS: Vitamin A 38 mcg/dL (38-98)
== END 2024-02-08 13:33 | disposition home or self-care (01) ==
LOC: HO.HMGCLDS 13:32
PROVIDERS: PCP Internal Medicine; Visit Provider Internal Medicine
DX: E50.9 Vitamin A deficiency, unspecified (principal); E55.9 Vitamin D deficiency, unspecified
CPT/HCPCS: 36415; 82306; 84590

== ENCOUNTER 2024-04-02 11:10 | Outpatient (REF) | payer OTHER, SELFPAY ==
[2024-04-03 03:50] LABS: CT PCR NOT DETECTED (Not Detect.); NG PCR NOT DETECTED (Not Detect.)
[2024-04-03 12:07] LABS: Bacterial Vaginosis PCR NEGATIVE (Negative); Candida Group PCR NOT DETECTED (Not Detect); Candida glab krusei PCR NOT DETECTED (Not Detect); Trichomonas vaginalis PCR NOT DETECTED (Not Detect)
== END 2024-04-02 11:11 | disposition home or self-care (01) ==
LOC: HO.LNP 11:10
PROVIDERS: PCP Internal Medicine; Visit Provider Advanced Practice Midwife
DX: Z01.419 Encounter for gynecological examination (general) (routine) without abnormal findings (principal); Z20.2 Contact with and (suspected) exposure to infections with a predominantly sexual mode of transmission
CPT/HCPCS: 0352U; 87491; 87591

== ENCOUNTER 2024-04-02 11:10 | Outpatient (AMB) | payer OTHER, SELFPAY ==
--- NOTE | 2024-04-02 11:18 | MHC.OFFVIS ---
Vital Signs 04/02/24 11:19 Height 5 ft 6 in Weight 203 lb 8 oz BMI 32.8 BP 96/62 Blood Pressure Location Lt brachial Position Sitting Intake Visit Reasons: [employer] annual exam Behavioral Analyst Required: No Allergies No Known Allergies Allergy (Verified 04/02/24 11:26) Medication List - Last Reconciled 04/02/24 by Rita Dubon LPN cholecalciferol (vitamin D3) 100 mcg PO DAILY Is last menstrual period known: Yes Last menstrual period: 03/16/24 Patient : No HPI Comments Details: She is a premenopausal woman presenting for annual examination. Doing well with concerns: weight concerns. Regular monthly menses. Hx. of TL. Currently is sexually active. She denies vaginal itching and irritation. STI screening offered; she accepts. She tries to eat healthy and stays active with some exercise. Denies family history of breast, ovarian or colon cancer. Last pap smear 2022, negative. [facility] Medical History Hyperpigmented skin lesion GERD (gastroesophageal reflux disease) History of cholelithiasis Obesity (BMI 30.0-34.9) History of anemia Vitamin A deficiency Vitamin D deficiency Anemia Abnormal uterine bleeding (AUB) Hypercholesterolemia Surgical History Hx of tubal ligation Hx of cholecystectomy Hx of tonsillectomy Family History Maternal Grandmother Diabetes FH: HTN (hypertension) Father Brain cancer Paternal Grandmother FH: HTN (hypertension) Diabetes Maternal Grandfather Substance use disorder Alcoholism Mother Substance use disorder Alcoholism Mixed anxiety and depressive disorder Social History Household Members: Spouse and Children Housing: Apartment Alcohol intake: never Patient Tobacco Use Status: Never used Tobacco e-Cigarette/Vaping Use: Never Used Patient : No Current occupational status: employed 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 Sexual orientation: Straight/Heterosexual Gender identity: Female Cognitive needs: No Hearing needs: No Vision needs: No Female Reproductive History Menstrual Age of Menarche: 9 Duration of menses: 3-5 days Date of last menstrual period: 03/16/24 control method: permanent sterilization Total pregnancies: 2 Full term: 2 Number of Living Children: 2 Date of last pap smear: 02/09/23 History of abnormal pap smear: No Review of Systems Const All systems reviewed & are unremarkable except as noted in HPI and below Reports as per HPI Eyes Reports no additional complaints ENT Reports no additional complaints Card Reports no additional complaints Resp Reports no additional complaints GI Reports as per HPI and Reports no additional complaints Reports as per HPI Musc Reports no additional complaints Skin/Breast Reports as per HPI Neuro Reports no additional complaints Psych Reports no additional complaints Endo Reports no additional complaints Walter/Lymph Reports no additional complaints Aller/Immun Reports no additional complaints Physical Exam Vital Signs: Last Vital Signs BP 96/62 04/02/24 11:19 BMI result Body Mass Index 32.8 Const General: cooperative, healthy appearing, no acute distress, well developed and alert Orientation/consciousness: patient oriented x3 HEENT Head: Yes normal to inspection Eyes General: appearance normal, both eyes and all related structures Neck Neck: Yes normal visual inspection Thyroid: Thyroid normal Chest Chest palpation & inspection: normal inspection of the chest and other (no puckering, dimpling, peau de orange, retraction, discharge, masses) Breast/axilla inspection: normal inspection of the breasts Breast/axilla palpation: normal palpation of the breasts Resp Effort & Inspection: normal respiratory effort GI Inspection: Yes normal to inspection Palpation (GI): Soft to palpation Rectal Exam - Female: deferred General: Yes bladder normal to palpation External Female Exam: normal external appearance and normal appearance of the urethra Speculum Exam - Vagina: normal appearance of the vagina, normal palpation and abnormal vaginal discharge (Thick white slightly clumpy) Speculum Exam - Cervix: normal appearance of the cervix and normal palpation Bimanual exam- vagina & uterus: normal bimanual exam, normal palpation, uterine size normal, bladder normal to palpation, normal palpation and non-tender Bimanual Exam- Adnexa, other: no masses Skin General skin exam: no rashes or lesions noted Rashes: no rashes Neuro General: patient oriented x3 Cognition (Neuro): normal cognition Extrem General: Yes normal to inspection Psych Attitude: cooperative Thought process: Normal thought process present Assessment & Plan Assessment & Plan (1) Encounter for well woman exam with routine gynecological exam: Code(s): Z01.419 - Encounter for gynecological examination (general) (routine) without abnormal findings Category: Medical (2) Possible exposure to STD: Code(s): Z20.2 - Contact with and (suspected) exposure to infections with a predominantly sexual mode of transmission Plan Discussed: Current recommendations for pap smears per ASCCP guidelines. Breast awareness and periodic breast exams. Maintain a healthy lifestyle including a well balanced diet and routine exercise. GC chlamydia and BV panel obtained. Await results for plan of care. Patient verbalizes understanding and agrees to the plan of care. She was given opportunity to ask questions and all questions were answered to the best of my ability. 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 This note is constructed using voice recognition software. While every effort has been made to ensure accuracy, control chemist errors may have been included. Coding Level of Care Code Est Pt Prev Care 18-39y(60101) Diagnoses Encounter for well woman exam with routine gynecological exam Z01.419 Possible exposure to STD Z20.2
[2024-04-02 11:19] VITALS: BP 96/62; BMI 32.8
== END 2024-04-02 11:50 | disposition home or self-care (01) ==
PROVIDERS: PCP Internal Medicine; Visit Provider Advanced Practice Midwife
DX: Z01.419 Encounter for gynecological examination (general) (routine) without abnormal findings (principal); Z20.2 Contact with and (suspected) exposure to infections with a predominantly sexual mode of transmission
CPT/HCPCS: 99395